=== PATIENT | female | born 1950 | race Caucasian/White ===

== ENCOUNTER 2016-06-08 16:53 | Emergency (ER) | payer MEDICARE, OTHER ==
[~2016-06-08] VITALS: Ht 170.2 cm; Wt 89.4 kg
--- NOTE | 2016-06-08 17:14 | ED Lower Extremity ---
General Chief Complaint: Lower Extremity Stated Complaint: LEFT FOOT SWELLING Source: patient Exam Limitations: no limitations History of Present Illness Time seen by provider: 17:13 Initial Comments To ER with reports of left foot swelling for the past 5 days. No known injury. No fevers or chills. This is never happened before. She was seen at [facility] at the onset of this illness and was told this was arthritis. She states that she's had blood work and an ultrasound done which failed to show any pathology and she was told again that this was arthritis. Onset: just prior to arrival Severity: moderate Pain/Injury Location: left leg Method of Injury: fell Modifying Factors: Improves With Movement Allergies and Home Medications Allergies Coded Allergies: Penicillins (Verified Allergy, Intermediate, 06/08/16) acetaminophen (Verified Allergy, Intermediate, 06/08/16) codeine (Verified Allergy, Intermediate, 06/08/16) oxycodone (Verified Allergy, Intermediate, 06/08/16) pentazocine (Verified Allergy, Intermediate, 06/08/16) propoxyphene (Verified Allergy, Intermediate, 06/08/16) tramadol (Verified Allergy, Intermediate, 06/08/16) Home Medications Sulfamethoxazole/Trimethoprim 1 Each Tablet #10 1 EACH PO BID Prescribed by: CORIN EPSTEIN on 06/08/16 3031 Constitutional: see HPI EENTM: see HPI Respiratory: no symptoms reported Cardiovascular: no symptoms reported Genitourinary: no symptoms reported Musculoskeletal: no symptoms reported Skin: no symptoms reported Psychiatric/Neurological: No Symptoms Reported Past Hvnuoma-Qipsum-Fhyoxo Hx Patient Social History Recent Foreign Travel: No Contact w/Someone Who Travel: No Physical Exam Vital Signs Vital Sign - Last 12Hours 06/08/16 17:11 Temp 96.6 Pulse 93 Resp 20 B/P 115/87 Pulse Ox 95 O2 Delivery Room Air Capillary Refill : General Appearance: WD/WN no apparent distress HEENT: PERRL/EOMI normal ENT inspection Respiratory: no respiratory distress no accessory muscle use Hips: bilateral hip non-tender, bilateral hip normal inspection, bilateral hip normal range of motion Legs: left leg pain, left leg soft tissue tenderness, left leg swelling, left leg other (swelling extends proximally to mid tibia. No erythema. ) Knees: bilateral knee non-tender, bilateral knee normal inspection, bilateral knee normal range of motion Ankles: bilateral ankle non-tender, bilateral ankle normal inspection, bilateral ankle normal range of motion Feet: left foot soft tissue tenderness, left foot swelling, left foot other ( there is a palpable dorsalis pedis pulse) Neurologic/Psychiatric: alert normal mood/affect oriented x 3 Skin: normal color warm/dry Progress/Results/Core Measures Results/Orders Lab Results Laboratory Tests Test 06/08/16 17:35 06/08/16 17:59 Range/Units Urine Bacteria FEW H /HPF Urine Bilirubin 1+ H NEGATIVE Urine Casts NONE /LPF Urine Clarity SLIGHTLY CLOUDY Urine Color YELLOW Urine Crystals NONE /LPF Urine Culture Indicated YES Urine Glucose (UA) NEGATIVE NEGATIVE Urine Ketones NEGATIVE NEGATIVE Urine Leukocyte Esterase 3+ H NEGATIVE Urine Mucus LARGE H /LPF Urine Nitrite NEGATIVE NEGATIVE Urine Protein 1+ H NEGATIVE Urine RBC 0-2 /HPF Urine RBC (Auto) 1+ H NEGATIVE Urine Specific [place] 1.030 H 1.016-1.022 Urine Squamous Epithelial Cells 10-25 H /HPF Urine Urobilinogen NORMAL NORMAL MG/DL Urine WBC 50-100 H /HPF Urine pH 5 5-9 Alanine Aminotransferase (ALT/SGPT) 18 0-55 U/L Albumin 3.5 3.2-4.5 G/DL Alkaline Phosphatase 69 40-136 U/L Anion Gap 10 5-14 MMOL/L Aspartate Amino Transf (AST/SGOT) 15 5-34 U/L BUN/Creatinine Ratio 13 Basophils # (Auto) 0.1 0.0-0.1 10^3/uL Basophils (%) (Auto) 1 0-10 % Blood Urea Nitrogen 10 7-18 MG/DL Calcium Level 8.6 8.5-10.1 MG/DL Carbon Dioxide Level 21 21-32 MMOL/L Chloride Level 110 H 98-107 MMOL/L Creatinine 0.80 0.60-1.30 MG/DL Eosinophils # (Auto) 0.3 0.0-0.3 10^3/uL Eosinophils (%) (Auto) 5 0-10 % Estimat Glomerular Filtration Rate > 60 Glucose Level 103 70-105 MG/DL Hematocrit 35 L 40-54 % Hemoglobin 11.7 L 13.3-17.7 G/DL Lymphocytes # (Auto) 2.2 1.0-4.0 X 10^3 Lymphocytes (%) (Auto) 31 12-44 % Mean Corpuscular Hemoglobin 31 25-34 PG Mean Corpuscular Hemoglobin Concent 34 32-36 G/DL Mean Corpuscular Volume 92 80-99 FL Mean Platelet Volume 11.4 H 7.4-10.4 FL Monocytes # (Auto) 1.0 0.0-1.0 X 10^3 Monocytes (%) (Auto) 14 H 0-12 % Neutrophils # (Auto) 3.6 1.8-7.8 X 10^3 Neutrophils (%) (Auto) 50 42-75 % Platelet Count 231 130-400 10^3/uL Potassium Level 3.5 L 3.6-5.0 MMOL/L Red Blood Count 3.74 L 4.35-5.85 10^6/uL Red Cell Distribution Width 14.4 10.0-14.5 % Sodium Level 141 135-145 MMOL/L Total Bilirubin 1.2 H 0.1-1.0 MG/DL Total Protein 5.9 L 6.4-8.2 G/DL White Blood Count 7.2 4.3-11.0 10^3/uL My Orders Orders-CORIN EPSTEIN APRN Cbc With Automated Diff (06/08/16 17:12) Comprehensive Metabolic Panel (06/08/16 17:12) Ua Culture If Indicated (06/08/16 17:12) Us Venous Lower Ext Lt (06/08/16 17:12) Urine Culture (06/08/16 17:35) Sulfamethoxazole/Trimet Ds Tab (Bactrim (06/08/16 19:00) Arsen Umair 09,21 (06/08/16 18:52) Medications Given in ED Current Medications Medications Dose Ordered Sig/Theodore Route Start Time Stop Time Status Last Admin Dose Admin Trimethoprim/ Sulfamethoxazole 1 ea ONCE ONCE PO 06/08/16 19:00 06/08/16 19:01 DC 06/08/16 18:58 1 EA Vital Signs/I&O Vital Sign - Last 12Hours 06/08/16 17:11 Temp 96.6 Pulse 93 Resp 20 B/P 115/87 Pulse Ox 95 O2 Delivery Room Air Diagnostic Imaging Diagonstic Imaging: Ultrasound Comments NAME: MICHAEL IBANEZ MED REC#: [id number] PT STATUS: REG ER : 1950 PHYSICIAN: CORIN EPSTEIN APRN ADMIT DATE: 06/08/16/ER Signed Date of Exam:06/08/16 US VENOUS LOWER EXT LT PROCEDURE: US left lower extremity venous. TECHNIQUE: Multiple real-time grayscale images were obtained over the left lower extremity in various projections. Additional duplex Doppler and color Doppler images were also obtained. Indication: Left leg pain. Findings: The left common femoral, femoral and popliteal veins are patent without evidence of DVT. Visualized aspects of the proximal greater saphenous, deep femoral, peroneal and posterior tibial veins are patent. All of the evaluated deep venous structures demonstrate normal compressibility and augmentation where applicable. Impression: No left lower extremity deep venous thrombosis (DVT). Dictated by: Dictated on workstation # [id number] Dict: 06/08/161750 Trans: 06/08/161751 [facility] [id number] Interpreted by: TEE TAYLOR MD Electronically signed by: TEE TAYLOR MD 06/08/161753 Departure Communication Progress Notes I did advise the patient that she does not have a blood clot, this may be Achilles tendinitis given the pain to the back of the ankle. There is no discoloration of the lower extremity. I advised that she does have a bladder infection. I then advised that that was not the cause of her leg swelling when her sister then stated that she believed the bladder infection to be the cause of her leg swelling. Impression Impression: Primary Impression: Left leg swelling Additional Impression: Urinary tract infection Qualified Code: N30.00 - Acute cystitis without hematuria Disposition: HOME, SELF-CARE Condition: Stable Departure-Patient Inst. Decision time for Depature: 18:00 Referrals: NO,LOCAL PHYSICIAN (PCP) Primary Care Physician Patient Instructions: NO INSTRUCTIONS GIVEN, Urinary Tract Infection, Adult (DC ) Add. Discharge Instructions: 1. Elevate the left leg as much as possible 2. Wear the compression stocking during the day and take it off at night for the next week 3. Follow-up with your primary care provider tomorrow or Sunday for further evaluation All discharge instructions reviewed with patient and/or family. Voiced understanding. Scripts Sulfamethoxazole/Trimethoprim (Bactrim Ds Tablet)1 Each Tablet1 Each PO BID #10 TAB Prov:CORIN EPSTEIN APRN 06/08/16 CORIN EPSTEIN APRN Jun 08, 2016 17:14
[2016-06-08 17:45] LABS: KETONES,URINE NEGATIVE (NEGATIVE); LEUKOCYTE ESTERASE ,URINE 3+ (NEGATIVE); NITRITE,URINE NEGATIVE (NEGATIVE); PH,URINE 5 (5-9); PROTEIN,URINE 1+ (NEGATIVE); UROBILINOGEN,URINE NORMAL (NORMAL)
--- NOTE | 2016-06-08 17:54 | Diagnostic Imaging Report ---
PROCEDURE: US left lower extremity venous. TECHNIQUE: Multiple real-time grayscale images were obtained over the left lower extremity in various projections. Additional duplex Doppler and color Doppler images were also obtained. Indication: Left leg pain. Findings: The left common femoral, femoral and popliteal veins are patent without evidence of DVT. Visualized aspects of the proximal greater saphenous, deep femoral, peroneal and posterior tibial veins are patent. All of the evaluated deep venous structures demonstrate normal compressibility and augmentation where applicable. Impression: No left lower extremity deep venous thrombosis (DVT). Dictated by: Dictated on workstation # [id number]
[2016-06-08 17:55] LABS: BILIRUBIN,URINE 1+ (NEGATIVE); WBC,URINE 50-100 /HPF
[2016-06-08 18:09] LABS: BASOPHILS # (AUTO) 0.1 10^3/uL (0.0-0.1); BASOPHILS % (AUTO) 1 % (0-10); EOSINOPHILS # (AUTO) 0.3 10^3/uL (0.0-0.3); EOSINOPHILS % (AUTO) 5 % (0-10); LYMPHOCYTES # (AUTO) 2.2 X 10^3 (1.0-4.0); LYMPHOCYTES % (AUTO) 31 % (12-44); MEAN CORPUSCULAR HEMOGLOBIN 31 PG (25-34); MEAN CORPUSCULAR HGB CONC 34 G/DL (32-36); MEAN CORPUSCULAR VOLUME 92 FL (80-99); MEAN PLATELET VOLUME 11.4 FL (7.4-10.4); MONOCYTES % (AUTO) 14 % (0-12); NEUTROPHILS # (AUTO) 3.6 X 10^3 (1.8-7.8); NEUTROPHILS % (AUTO) 50 % (42-75); PLATELET COUNT 231 10^3/uL (130-400); RED BLOOD COUNT 3.74 10^6/uL (4.35-5.85); RED CELL DISTRIBUTION WIDTH 14.4 % (10.0-14.5); WHITE BLOOD COUNT 7.2 10^3/uL (4.3-11.0)
[2016-06-08 18:28] LABS: ALANINE AMINOTRANSFERASE 18 U/L (0-55); ALBUMIN 3.5 G/DL (3.2-4.5); ANION GAP 10 MMOL/L (5-14); ASPARTATE AMINO TRANSFERASE 15 U/L (5-34); BILIRUBIN,TOTAL 1.2 MG/DL (0.1-1.0); BLOOD UREA NITROGEN 10 MG/DL (7-18); BUN/CREATININE RATIO 13; CALCIUM 8.6 MG/DL (8.5-10.1); CARBON DIOXIDE 21 MMOL/L (21-32); CHLORIDE 110 MMOL/L (98-107); GFR ESTIMATED > 60; GLUCOSE 103 MG/DL (70-105); POTASSIUM 3.5 MMOL/L (3.6-5.0); SODIUM 141 MMOL/L (135-145); TOTAL PROTEIN 5.9 G/DL (6.4-8.2)
[2016-06-08] MEDS ORDERED: SULF1TAB35 PO (18:51)
[2016-06-08 19:00] VITALS: BP 120/85
[2016-06-08] MEDS ORDERED: TRIM/SULFAMETH 160/800 (SEPTRA DS) TAB PO ONE (19:00)
== END 2016-06-08 19:00 | disposition home or self-care (01) ==
LOC: EDUNIT# 16:53 → EDSEX 16:57 → ER 16:57
DX: R22.42 Localized swelling, mass and lump, left lower limb (principal); N39.0 Urinary tract infection, site not specified
CPT/HCPCS: 36415; 80053; 81000; 85025; 87088; 99283

== ENCOUNTER 2016-09-29 14:22 | Emergency (ER) | payer MEDICARE ==
[~2016-09-29] VITALS: Ht 170.2 cm; Wt 81.6 kg
[~2016-09-29 14:22] MED LIST: SULF1TAB35 PO
--- NOTE | 2016-09-29 14:41 | ED Chest Pain ---
General Stated Complaint: CHEST PAIN Source: patient Exam Limitations: no limitations History of Present Illness Time seen by provider: 14:29 Initial Comments Here with report of right-sided chest pain that she says is tight and squeezing. It is associated with nausea and shortness of breath. She states that it started at about 5 a.m. this morning and was associated with sweating at that time. She went to [place] [facility] and was discharged little while ago and they told her that she didn't have anything going on for the patient. The sister reports that the patient had seizures [address] over here and patient has history of seizure disorder. She had another event from we are putting her in the bed which lasted about 5 seconds and resolved and seemed to be more like the patient was just slumping over. She was responsive throughout that time. Sister states that this is what she's been doing in the car as well. This does not appear to be seizures. Patient denies dysuria or diarrhea currently but did have diarrhea a few days ago. Timing/Duration: 4-6 hours Severity/Quality: moderate, pressure, stabbing Location: other (right sided) Radiation: no radiation Activities at Onset: none Prior CP/Workup: no prior cardiac workup Modifying Factors: worse with movement ASA po BIOFUELS OPERATIONS MANAGER: No NTG SL BIOFUELS OPERATIONS MANAGER: No Associated Symptoms: diaphoresis, nausea/vomiting, weakness Allergies and Home Medications Allergies Coded Allergies: Penicillins (Verified Allergy, Intermediate, 06/08/16) acetaminophen (Verified Allergy, Intermediate, 06/08/16) codeine (Verified Allergy, Intermediate, 06/08/16) oxycodone (Verified Allergy, Intermediate, 06/08/16) pentazocine (Verified Allergy, Intermediate, 06/08/16) propoxyphene (Verified Allergy, Intermediate, 06/08/16) tramadol (Verified Allergy, Intermediate, 06/08/16) Home Medications Sulfamethoxazole/Trimethoprim 1 Each Tablet, 1 EACH PO BID, #10 Prescribed by: CORIN EPSTEIN on 06/08/16 7352 Review of Systems Constitutional: see HPI, No chills, No fever EENTM: No Symptoms Reported Respiratory: See HPI, Shortness of Air, Denies Wheezing Cardiovascular: Chest Pain, Denies Edema Gastrointestinal: See HPI, Denies Vomiting Genitourinary: No Symptoms Reported Musculoskeletal: no symptoms reported Skin: no symptoms reported Psychiatric/Neurological: See HPI, Anxiety, Emotional Problems All Other Systems Reviewed Negative Unless Noted: Yes Past Wdwudll-Fzwsjc-Sdguki Hx Patient Social History Alcohol Use: Denies Use Recreational Drug Use: No Smoking Status: Former Smoker Type Used: Cigarettes 2nd Hand Smoke Exposure: Yes Recent Hopitalizations: Yes (HEART CATH 05/31/16) Seasonal Allergies Seasonal Allergies: No Surgeries HX Surgeries: Yes (HEART CATH, COLON, CARPAL TUNNEL, EYE) Surgeries: Appendectomy, Gallbladder Respiratory Hx Respiratory Disorders: Yes Respiratory Disorders: Asthma, Emphysema Cardiovascular Hx Cardiac Disorders: Yes (CHF) Cardiac Disorders: Hypertension Neurological Hx Neurological Disorders: No Genitourinary Hx Genitourinary Disorders: No Gastrointestinal Hx Gastrointestinal Disorders: No Musculoskeletal Hx Musculoskeletal Disorders: Yes Musculoskeletal Disorders: Arthritis, Chronic Back Pain Endocrine Hx Endocrine Disorders: No HEENT HX ENT Disorders: Yes HEENT Disorders: Cataract Cancer Hx Cancer: No Psychosocial Hx Psychiatric Problems: Yes Behavioral Health Disorders: Anxiety Integumentary HX Skin/Integumentary Disorder: No Blood Transfusions Hx Blood Disorders: No Reviewed Nursing Assessment Reviewed/Agree w Nursing PMH: Yes Family Medical History Significant Family History: No Pertinent Family Hx Physical Exam Vital Signs Vital Sign - Last 12Hours 09/29/16 09/29/16 14:25 18:30 Temp 97.8 Pulse 55 Resp 16 B/P (MAP) 150/80 Pulse Ox 98 Capillary Refill : General Appearance: No Apparent Distress, WD/WN HEENT: PERRL/EOMI, Pharynx Normal Neck: Non Tender, Supple Respiratory: Lungs Clear, Normal Breath Sounds Cardiovascular: Regular Rate, Rhythm, No Murmur Gastrointestinal: Non Tender, Soft Extremity: Normal Inspection, Normal Range of Motion, Non Tender, No Calf Tenderness Neurologic/Psychiatric: Alert, Oriented x3 Skin: Normal Color, Warm/Dry Progress/Results/Core Measures Results/Orders Lab Results Laboratory Tests Test 09/29/16 15:32 09/29/16 17:07 Range/Units White Blood Count 8.3 4.3-11.0 10^3/uL Red Blood Count 4.00 L 4.35-5.85 10^6/uL Hemoglobin 12.1 11.5-16.0 G/DL Hematocrit 37 35-52 % Mean Corpuscular Volume 92 80-99 FL Mean Corpuscular Hemoglobin 30 25-34 PG Mean Corpuscular Hemoglobin Concent 33 32-36 G/DL Red Cell Distribution Width 14.0 10.0-14.5 % Platelet Count 218 130-400 10^3/uL Mean Platelet Volume 11.4 H 7.4-10.4 FL Neutrophils (%) (Auto) 52 42-75 % Lymphocytes (%) (Auto) 34 12-44 % Monocytes (%) (Auto) 9 0-12 % Eosinophils (%) (Auto) 5 0-10 % Basophils (%) (Auto) 1 0-10 % Neutrophils # (Auto) 4.3 1.8-7.8 X 10^3 Lymphocytes # (Auto) 2.8 1.0-4.0 X 10^3 Monocytes # (Auto) 0.7 0.0-1.0 X 10^3 Eosinophils # (Auto) 0.4 H 0.0-0.3 10^3/uL Basophils # (Auto) 0.1 0.0-0.1 10^3/uL Prothrombin Time 11.7 L 12.2-14.7 SEC INR Comment 0.9 0.8-1.4 Activated Partial Thromboplast Time < 20 L 24-35 SEC D-Dimer 1.06 H 0.00-0.49 UG/ML Sodium Level 142 135-145 MMOL/L Potassium Level 4.0 3.6-5.0 MMOL/L Chloride Level 111 H 98-107 MMOL/L Carbon Dioxide Level 19 L 21-32 MMOL/L Anion Gap 12 5-14 MMOL/L Blood Urea Nitrogen 14 7-18 MG/DL Creatinine 0.73 0.60-1.30 MG/DL Estimat Glomerular Filtration Rate > 60 BUN/Creatinine Ratio 19 Glucose Level 89 70-105 MG/DL Calcium Level 8.9 8.5-10.1 MG/DL Magnesium Level 2.2 1.8-2.4 MG/DL Total Bilirubin 0.7 0.1-1.0 MG/DL Aspartate Amino Transf (AST/SGOT) 17 5-34 U/L Alanine Aminotransferase (ALT/SGPT) 16 0-55 U/L Alkaline Phosphatase 65 40-136 U/L Myoglobin 34.2 40.3 10.0-92.0 NG/ML Troponin I < 0.30 < 0.30 <0.30 NG/ML Total Protein 6.4 6.4-8.2 G/DL Albumin 3.6 3.2-4.5 G/DL My Orders Orders - TAMI OWEN MD Cbc With Automated Diff (09/29/16 14:34) Magnesium (09/29/16 14:34) Chest 1 View, Ap/Pa Only (09/29/16 14:34) Ekg Tracing (09/29/16 14:34) Cardiac Profile 1 (09/29/16 14:34) Comprehensive Metabolic Panel (09/29/16 14:34) Myoglobin Serum (09/29/16 14:34) Protime With Inr (09/29/16 14:34) Partial Thromboplastin Time (09/29/16 14:34) O2 (09/29/16 14:34) Monitor-Rhythm Ecg Trace Only (09/29/16 14:34) Aspirin Chewable Tablet (Baby Aspirin Ch (09/29/16 14:45) Rx-Nitroglycerin Sl Tabs (Rx-Nitrostat S (09/29/16 14:45) Saline Lock/Iv-Start (09/29/16 14:34) Fibrin Degradation Products (09/29/16 14:52) Hydrocodone/Apap 7.5/325 Tab (Lortab 7. (09/29/16 16:39) Us Venous Lower Ext Zackery (09/29/16 16:39) Troponin I (09/29/16 16:43) Ekg Tracing (09/29/16 16:43) Myoglobin Serum (09/29/16 16:43) Medications Given in ED Vital Signs/I&O Vital Sign - Last 12Hours 09/29/16 09/29/16 09/29/16 09/29/16 14:25 15:40 17:18 18:30 Temp 97.8 97.8 97.8 97.8 Pulse 55 58 Resp 16 16 B/P (MAP) 150/80 Pulse Ox 98 Progress Note : Progress Note Seen and evaluated. IV, labs, EKG, chest x-ray, aspirin 324 mg by mouth. Nitroglycerin sublingual when necessary ordered. Monitor patient. 1635: Patient does not have any significant findings related to heart except for mild elevation of d-dimer. I did discuss the case with Dr. Jasso. He is not convinced there is admitting criteria currently. We will get a Doppler ultrasound of the lower extremities bilaterally. Hydrocodone 7.5 mg by mouth given for pain. We will check orthostatic vital signs. Patient is doing better overall and there is no EKG findings or laboratory findings to suggest current acute FL event. Patient is not hypoxic and otherwise has normal vital signs. 1809: Repeat EKG, labs and ultrasound all negative. I did discuss the case with Dr. Galvez and he will see the patient early next week for recheck and further evaluation. Patient was okay with that. There is she will follow-up with the patient on Sunday and the patient is to call his office. Patient was okay with those instructions. She was offered Sunday but stated she could not go on that date due to difficulty with getting a ride. Discharged home with return precautions. Patient verbalized understanding of instructions and agreement with plan. ECG Initial ECG Impression Date: Sep 29, 2016 Initial ECG Impression Time: 14:31 Initial ECG Rate: 63 Initial ECG Rhythm: Normal Sinus Initial ECG Impression: Normal Comment Sinus rhythm with normal axis. No evidence of ST elevation FL. Similar to previous of 12/31/1999. Interpreted by me. EKG : EKG Time: 16:54 Rate: 52 Rhythm: Normal Sinus ECG Impression: Normal Comment Sinus rhythm with normal axis. No evidence of ST elevation FL. Similar to EKG done earlier. Interpreted by me. Diagnostic Imaging Diagonstic Imaging: Xray Plain Films/CT/US/NM/MRI: chest Comments VIA [facility]. [place], [place] NAME: MICHAEL IBANEZ [facility] REC#: [id number] PT STATUS: REG ER : 1950 PHYSICIAN: TAMI OWEN MD ADMIT DATE: 09/29/16/ER Draft Date of Exam:09/29/16 CHEST 1 VIEW, AP/PA ONLY INDICATION: Right-sided chest pain EXAMINATION: Portable chest at 2:41 PM Heart size and pulmonary vascularity are normal. Lungs are clear. There are no effusions or pneumothoraces. IMPRESSION: Negative chest. Dictated on workstation # [id number] Dict: 09/29/16 1448 Trans: 09/29/16 1450 [place] [id number] Interpreted by: TAMI GRANGER Electronically signed by: Reviewed: Reviewed by Me Departure Impression Impression: Primary Impression: Chest pain Qualified Codes: R07.9 - Chest pain, unspecified Disposition: 01 HOME, SELF-CARE Condition: Stable Departure-Patient Inst. Decision time for Depature: 18:17 Referrals: GERONIMO GALVEZ MD NO,LOCAL PHYSICIAN (PCP) Primary Care Physician Patient Instructions: Chest Pain (DC) Add. Discharge Instructions: Continue home medications as previously prescribed. Call Dr. Galvez on Sunday morning for appointment on Sunday. Return for worse pain, fever, vomiting, weakness, breathing problems or other concerns as needed. TAMI OWEN MD Sep 29, 2016 14:41
[2016-09-29] MEDS ORDERED: RX-NITROGLYCERIN 0.4 MG TAB BTL 25'S SL PRN (14:45)
--- NOTE | 2016-09-29 14:51 | Diagnostic Imaging Report ---
INDICATION: Right-sided chest pain EXAMINATION: Portable chest at 2:41 PM Heart size and pulmonary vascularity are normal. Lungs are clear. There are no effusions or pneumothoraces. IMPRESSION: Negative chest. Dictated by: Dictated on workstation # [id number]
[2016-09-29 15:40] LABS: BASOPHILS # (AUTO) 0.1 10^3/uL (0.0-0.1); BASOPHILS % (AUTO) 1 % (0-10); EOSINOPHILS # (AUTO) 0.4 10^3/uL (0.0-0.3); EOSINOPHILS % (AUTO) 5 % (0-10); LYMPHOCYTES # (AUTO) 2.8 X 10^3 (1.0-4.0); LYMPHOCYTES % (AUTO) 34 % (12-44); MEAN CORPUSCULAR HEMOGLOBIN 30 PG (25-34); MEAN CORPUSCULAR HGB CONC 33 G/DL (32-36); MEAN CORPUSCULAR VOLUME 92 FL (80-99); MEAN PLATELET VOLUME 11.4 FL (7.4-10.4); MONOCYTES # (AUTO) 0.7 X 10^3 (0.0-1.0); MONOCYTES % (AUTO) 9 % (0-12); NEUTROPHILS # (AUTO) 4.3 X 10^3 (1.8-7.8); NEUTROPHILS % (AUTO) 52 % (42-75); PLATELET COUNT 218 10^3/uL (130-400); WHITE BLOOD COUNT 8.3 10^3/uL (4.3-11.0)
[2016-09-29] MEDS: ASPIRIN 81 MG CHEW (CHILDREN'S ASA) PO ONE (15:40)
[2016-09-29 15:49] LABS: INR 0.9 (0.8-1.4); PROTHROMBIN TIME PATIENT 11.7 SEC (12.2-14.7)
[2016-09-29 15:52] LABS: PARTIAL THROMBOPLASTIN TIME < 20 SEC (24-35)
[2016-09-29 15:57] LABS: ALANINE AMINOTRANSFERASE 16 U/L (0-55); ALBUMIN 3.6 G/DL (3.2-4.5); ANION GAP 12 MMOL/L (5-14); ASPARTATE AMINO TRANSFERASE 17 U/L (5-34); BILIRUBIN,TOTAL 0.7 MG/DL (0.1-1.0); BLOOD UREA NITROGEN 14 MG/DL (7-18); BUN/CREATININE RATIO 19; CALCIUM 8.9 MG/DL (8.5-10.1); CARBON DIOXIDE 19 MMOL/L (21-32); CHLORIDE 111 MMOL/L (98-107); CREATININE SERUM 0.73 MG/DL (0.60-1.30); GFR ESTIMATED > 60; GLUCOSE 89 MG/DL (70-105); MAGNESIUM 2.2 MG/DL (1.8-2.4); SODIUM 142 MMOL/L (135-145); TOTAL PROTEIN 6.4 G/DL (6.4-8.2)
[2016-09-29 16:04] LABS: MYOGLOBIN SERUM 34.2 NG/ML (10.0-92.0)
[2016-09-29] MEDS: HYDROcodone/APAP 7.5 MG/325 MG (LORTAB, LORCET PLUS) TABLET PO STA (17:18)
[2016-09-29 17:41] LABS: MYOGLOBIN SERUM 40.3 NG/ML (10.0-92.0); TROPONIN I < 0.30 NG/ML (<0.30)
--- NOTE | 2016-09-29 18:25 | Diagnostic Imaging Report ---
INDICATION: Bilateral leg pain. EXAMINATION: Duplex ultrasound of the venous systems of both lower extremities was done with grayscale, spectral waveform and color Doppler flow analysis. FINDINGS: The veins are compressible and have normal spontaneous and augmented flow. IMPRESSION: Negative venous Doppler of the lower extremities. Dictated by: Dictated on workstation # [id number]
[2016-09-29 18:30] VITALS: BP 130/80
== END 2016-09-29 18:30 | disposition home or self-care (01) ==
LOC: EDUNIT# 14:22 → ER 14:24
DX: R07.9 Chest pain, unspecified (principal); J45.909 Unspecified asthma, uncomplicated; I11.0 Hypertensive heart disease with heart failure; I50.9 Heart failure, unspecified; Z87.891 Personal history of nicotine dependence
CPT/HCPCS: 36415; 71010; 80053; 83735; 83874; 84484; 85025; 85379; 85610; 85730; 93041; 93970

== ENCOUNTER 2016-12-20 09:20 | Emergency (ER) | payer MEDICARE ==
[~2016-12-20] VITALS: Ht 170.2 cm; Wt 81.6 kg
--- OUTSIDE RECORDS SUMMARY | 2016-12-20 09:36 | XMS REPORT ---
Author Author Rylee Palacios Organization [facility] Address [address] [place], [place] [id number] Care Team Providers Care Chick Room Supervisor Name Role Phone Rylee Palacios PCP Rylee Palacios PreferredProvider Allergies and Adverse Reactions Name Reaction Notes Keflex PENICILLINS Darvocet-N 100 codeine sulfate tramadol Talwin Morphine Sulfate Percocet IV DYE, IODINE CONTAINING Plan of Treatment Planned Activity Comments Planned Date Planned Time Plan/Goal CT ABD AND PELVIS W/WO CONTRAST 02/23/2016 12:[address] ABD AND PELVIS W/CONTRAST 06/12/2016 12:00 AM Complete blood count (CBC) with differential count 07/25/2016 12:00 AM UA with Culture and Sensitivity, if indicated 08/23/2016 12:00 AM GTT FIRST 3 SPECIMENS 08/23/2016 12:00 AM Fecal occult blood test 08/23/2016 12:00 AM seizures and migraines Medications Active Name Start Date Estimated Completion Date SIG Comments loratadine 10 mg oral tablet take 1 tablet (10 mg) by oral route once daily Singulair 10 mg oral tablet take 1 tablet (10 mg) by oral route once daily in the evening omeprazole 40 mg oral capsule,delayed release(DR/EC) take 1 capsule (40 mg) by oral route once daily before a meal Colace 100 mg oral capsule take 2 capsules (200 mg) by oral route once daily at bedtime as needed Stiolto Respimat 2.5-2.5 mcg/actuation inhalation mist inhale 2 puffs by inhalation route once daily at the same time each day amitriptyline 25 mg oral tablet 02/23/2016 take 1 tablet (25 mg) by oral route once daily at bedtime albuterol sulfate 2.5 mg /3 mL (0.083 %) inhalation solution for nebulization inhale 3 milliliters (2.5 mg) by nebulization route as needed Celexa 20 mg oral tablet take 1 tablet (20 mg) by oral route once daily pravastatin 40 mg oral tablet take 1 tablet (40 mg) by oral route once daily Ventolin HFA 90 mcg/actuation inhalation HFA aerosol inhaler 06/14/2016 inhale 1 - 2 puffs (90 - 180 mcg) by inhalation route every 4 hours as needed Stiolto Respimat 2.5-2.5 mcg/actuation inhalation mist 07/25/2016 2 INH QD pravastatin 40 mg oral tablet 07/25/2016 1 Tablet(s) PO QD montelukast 10 mg oral tablet 08/21/2016 TAKE 1 TABLET BY MOUTH EVERY DAY Duragesic 50 mcg/hr transdermal patch 72 hour 08/08/2016 apply 1 patch (50 mcg/hour) by transdermal route every 72 hours topiramate 50 mg oral capsule,sprinkle,ER 24hr 09/07/2016 01/05/2017 take 1 capsule (50 mg) and sprinkle entire contents on a small amount (teaspoonful) of soft food and take by oral route once daily swallowing whole. Do not crush or chew beads. for 30 days aspirin 325 mg oral tablet 09/07/2016 01/05/2017 take 1 tablet by oral route QD with food lisinopril 10 mg oral tablet take 1 tablet (10 mg) by oral route once daily ondansetron HCl 4 mg oral tablet take 1 tablet by oral route every 4 hours nystatin 100,000 unit/gram topical cream 10/16/2016 11/27/2016 apply to the affected area(s) by topical route 2 times per day for 21 days omeprazole 40 mg oral capsule,delayed release(DR/EC) 10/18/2016 TAKE 1 CAPSULE BY MOUTH EVERY DAY albuterol sulfate 2.5 mg /3 mL (0.083 %) inhalation solution for nebulization 10/23/2016 one amp in nebulizer machine up to every four hours as neede Milliliter(s) INH QID as needed Nebulizer and Kit 10/27/2016 DX: J44.9 Name Start Date Expiration Date SIG Comments Zipsor 25 mg oral capsule 01/20/2010 01/21/2010 take 1 capsule (25 mg) by oral route 4 times per day for 1 day doxycycline monohydrate 100 mg oral tablet 02/18/2010 02/25/2010 take 1 tablet (100 mg) by oral route 2 times per day for 7 days Premarin 1.25 mg oral tablet 12/12/2010 03/12/2011 TAKE 1 TABLET BY MOUTH EVERY DAY meloxicam 15 mg oral tablet 12/12/2010 01/11/2011 TAKE 1 TABLET BY MOUTH EVERY DAY pravastatin 40 mg oral tablet 03/24/2011 04/23/2011 TAKE 1 TABLET BY MOUTH EVERY DAY prednisone 20 mg oral tablet 05/15/2011 05/27/2011 take 3 tabs x2 days then 2 tabs x2 days then 1 tab x4 days then 1/2 tab x4 days. Bactrim DS 800-160 mg oral tablet 05/15/2011 05/25/2011 take 1 tablet by oral route 2 times a day for 10 days omeprazole 20 mg oral capsule,delayed release(DR/EC) 06/16/2011 09/14/2011 TAKE 1 CAPSULE BY MOUTH TWICE DAILY warfarin 5 mg oral tablet 11/14/2011 12/14/2011 TAKE 1 TABLET BY MOUTH DAILY loratadine 10 mg oral tablet 2012 06/16/2012 TAKE 1 TABLET BY MOUTH EVERY DAY Multivital [phone] [id number] oral tablet 08/06/2012 12/14/2012 TAKE 1 TABLET BY MOUTH EVERY MORNING omega-3 fatty acids-fish oil 340-1,000 mg oral capsule 08/06/2012 10/05/2012 TAKE 1 CAPSULE BY MOUTH EVERY DAY Bystolic 10 mg oral tablet 12/02/2012 01/01/2013 TAKE 1 TABLET BY MOUTH DAILY montelukast 10 mg oral tablet 02/05/2013 05/06/2013 TAKE 1 TABLET BY MOUTH EVERY DAY Vesicare 5 mg oral tablet 05/13/2013 11/09/2013 TAKE 1 TABLET BY MOUTH EVERY DAY Vesicare 5 mg oral tablet 06/27/2013 TAKE 1 TABLET BY MOUTH EVERY DAY latanoprost 0.005 % ophthalmic drops instill 1 drop into affected eye(s ) by ophthalmic route once daily in the evening albuterol sulfate 90 mcg/actuation inhalation HFA aerosol inhaler inhale 2 puffs by inhalation route every 4 hours as needed Fish Oil 500 mg oral capsule take 2 capsules by oral route daily Carafate 1 gram oral tablet take 1 tablet (1 gram) by oral route 2 times per day on an empty stomach Sinemet 10-100 mg oral tablet take 1 tablet by oral route QHS Protonix 40 mg oral tablet,delayed release (DR/EC) take 1 tablet (40 mg ) by oral route once daily Tessalon Perles 100 mg oral capsule take 1 capsule (100 mg) by oral route every 4 hours as needed Bystolic 10 mg oral tablet take 1 tablet (10 mg) by oral route once daily amitriptyline 25 mg oral tablet take 1 tablet (25 mg) by oral route once daily at bedtime for 30 days furosemide 20 mg oral tablet take 2 tablets (40 mg) by oral route once daily albuterol sulfate 2.5 mg /3 mL (0.083 %) inhalation solution for nebulization cyclobenzaprine 10 mg oral tablet take 2 tablets by oral route daily Flagyl 500 mg oral tablet 02/23/2016 take 1 tablet by oral route 3 times a day Levaquin 500 mg oral tablet 02/23/2016 03/08/2016 take 1 tablet (500 mg) by oral route once daily for 14 days Levaquin 500 mg oral tablet 04/21/2016 05/01/2016 take 1 tablet (500 mg) by oral route once daily for 10 days prednisone 20 mg oral tablet 04/21/2016 04/29/2016 4x2 days 3x2 days 2x2 days 1x2 days Tessalon Perles 100 mg oral capsule 04/21/2016 take 1 capsule by oral route every 4 hours Lockhart 10-325 mg oral tablet take 1 tablet by oral route every 4-6 hours as needed for pain hydrocodone-acetaminophen 5-325 mg oral tablet 07/25/2016 08/24/2016 take 1 tablet by oral route every 4 hours as needed for pain for 30 days Discontinued Name Start Date Discontinued Date SIG Comments meclizine 25 mg oral tablet 06/01/2011 take 1 tablet (25 mg) by oral route once daily Belladonna-Phenobarbital 16.2-0.1037 -0.0194 mg/5 mL oral elixir 06/01/2011 take 1 milliliter by oral route daily for 30 days furosemide 80 mg oral tablet 06/01/2011 take 1 tablet (80 mg) by oral route once daily lisinopril-hydrochlorothiazide 20-12.5 mg oral tablet 04/05/2009 take 1 tablet by oral route once daily Norvasc 10 mg oral tablet 04/05/2009 05/06/2009 take 1 tablet (10 mg) by oral route once daily for 30 days leg swelling Colace 100 mg oral capsule 05/06/2009 12/15/2013 take 1 capsule (100 mg) by oral route 2 times per day enalapril maleate 10 mg oral tablet 05/06/2009 09/21/2009 take 1 tablet (10 mg ) by oral route once daily Milk of Magnesia 400 mg/5 mL oral suspension 05/06/2009 06/01/2011 take 30 milliliters by oral route once daily as needed, followed by a full glass (8 oz) of liquid promethazine 25 mg oral tablet 05/06/2009 06/01/2011 take 1 tablet (25 mg) by oral route every 4 hours as needed Coreg 6.25 mg oral tablet 06/21/2009 09/21/2009 take 1 tablet (6.25 mg) by oral route 2 times per day with food Lotrisone 1-0.05 % topical cream 06/21/2009 06/01/2011 apply to the affected and surrounding areas of skin by topical route 2 times per day morning and evening benazepril 10 mg oral tablet 09/21/2009 take 1 tablet (10 mg) by oral route once daily A/B Otic 5.4-1.4 % otic drops 07/27/2009 06/01/2011 instill into left ear by otic route every 2 hours as needed enough drops to fill ear canal Ventolin HFA 90 mcg/actuation inhalation HFA aerosol inhaler 12/15/2013 inhale 2 puffs by inhalation route every 6 hours as needed Tessalon Perles 100 mg oral capsule 02/17/2010 06/01/2011 take 1-2 capsule ( 100 mg) by oral route 3 times per day prn cough Zithromax Z-Carlitos 250 mg oral tablet 02/17/2010 02/18/2010 take 2 tablets ( 500 mg) by oral route once daily for 1 day then 1 tablet (250 mg) by oral route once daily for 4 days Treximet 85-500 mg oral tablet 11/04/2010 06/01/2011 take 1 tablet by oral route 2 times a day Fish Oil 1,000 mg oral capsule 06/01/2011 12/15/2013 take 1 capsule by oral route daily hydroxyzine HCl 25 mg oral tablet 06/01/2011 12/15/2013 take 1 tablet by oral route every 6 hours as needed multivitamin Oral Capsule 06/01/2011 12/15/2013 take 1 capsule by oral route once daily albuterol sulfate 2.5 mg /3 mL (0.083 %) inhalation solution for nebulization 06/02/2011 12/15/2013 use in nebulizer as directed every 4 hours as needed Fish Oil 300-1,000 mg oral capsule 07/22/2013 12/15/2013 TAKE 1 CAPSULE BY MOUTH EVERY DAY aspirin 81 mg oral tablet,chewable 07/25/2016 chew 1 tablet (81 mg) by oral route once daily atenolol 25 mg oral tablet 10/16/2016 take 1 tablet (25 mg) by oral route once daily pravastatin 80 mg oral tablet 06/06/2016 take 1 tablet (80 mg) by oral route once daily ProAir HFA 90 mcg/actuation inhalation HFA aerosol inhaler 06/06/2016 inhale 1 - 2 puffs (90 - 180 mcg) by inhalation route every 4-6 hours as needed amitriptyline 25 mg oral tablet 04/18/2016 10/16/2016 take 1 tablet (25 mg) by oral route once daily at bedtime Zofran ODT 4 mg oral tablet,disintegrating 05/18/2016 07/25/2016 dissolve 1 tablet by oral route every 6 hours as needed furosemide 20 mg oral tablet 10/16/2016 take 2 tablets (40 mg) by oral route 2 times per day cyclobenzaprine 10 mg oral tablet 06/06/2016 take 1 tablet (10 mg) by oral route once daily hydrocodone-acetaminophen 10-325 mg oral tablet 07/25/2016 take 1 tablet by oral route every 4 hours as needed for pain prednisone 50 mg oral tablet 06/15/2016 07/25/2016 take 1 by mouth 13 hours prior to procedure take 1 by mouth 7 hours prior to procedure and 1 by mouth 1 hour prior to procedure Problem List Description Status Onset Hypertension Active Hyperlipidemia Active Asthma Active Anemia Active Abdominal Pain Active 12/24/2013 Duodenal ulcer Active 12/24/2013 Encounter for screening colonoscopy Active 12/24/2013 LLQ pain Active 02/23/2016 Diverticulitis Active 02/23/2016 IBS (irritable bowel syndrome) Active 02/23/2016 Dyspepsia Active 02/23/2016 Diverticulitis Active 04/04/2016 Abdominal wall pain Active 08/08/2016 Vital Signs Date Time BP-Sys(mm[Hg] BP-Cher(mm[Hg]) HR(bpm) RR(rpm) Temp WT HT HC BMI BSA BMI Percentile O2 Sat(%) 10/16/2016 3:39:00 PM 120 mmHg 78 mmHg 82 bpm 16 rpm 98.9 F 207.375 lbs 67 in 32.48 kg/m2 2.11 m2 95 % 09/07/2016 2:40:00 PM 150 mmHg 89 mmHg 73 bpm 18 rpm 99.6 F 199.125 lbs 67 in 31.1871 kg/m 2.0663 m 95 % 09/05/2016 9:46:00 AM 157 mmHg 79 mmHg 59 bpm 20 rpm 97.2 F 201.5 lbs 67 in 31.56 kg/m2 2.08 m2 08/23/2016 8:18:00 AM 152 mmHg 82 mmHg 62 bpm 18 rpm 98.7 F 202.375 lbs 67 in 31.6961 kg/m 2.0831 m 98 % 08/08/2016 9:15:00 AM 125 mmHg 98 mmHg 65 bpm 20 rpm 96.8 F 204 lbs 67 in 31.95 kg/m2 2.09 m2 07/25/2016 8:39:00 AM 168 mmHg 86 mmHg 62 bpm 18 rpm 97.8 F 202.25 lbs 67 in 31.6765 kg/m 2.0825 m 98 % 06/15/2016 1:48:00 PM 110 mmHg 70 mmHg 106 bpm 22 rpm 98.7 F 196 lbs 97 % 06/06/2016 2:58:00 PM 118 mmHg 74 mmHg 102 bpm 16 rpm 98.7 F 197.25 lbs 67 in 30.8934 kg/m 2.0566 m 98 % 05/24/2016 8:56:00 AM 118 mmHg 83 mmHg 99 bpm 20 rpm 96.9 F 195 lbs 67 in 30.54 kg/m2 2.04 m2 04/21/2016 5:16:00 PM 142 mmHg 80 mmHg 98 bpm 99.5 F 212 lbs 67.5 in 32.7135 kg/m 2.14 m 95 % 04/04/2016 3:02:00 PM 104 mmHg 80 mmHg 89 bpm 20 rpm 97.4 F 209.5 lbs 67.5 in 32.33 kg/m2 2.13 m2 02/23/2016 9:04:00 AM 161 mmHg 93 mmHg 15 bpm 20 rpm 97.1 F 210.5 lbs 70.5 in 29.7764 kg/m 2.1793 m 01/21/2014 8:50:00 AM 118 mmHg 60 mmHg 70 bpm 22 rpm 97.8 F 233 lbs 66 in 37.61 kg/m2 2.22 m2 12/23/2013 10:41:00 AM 147 mmHg 87 mmHg 65 bpm 22 rpm 97.2 F 235 lbs 66 in 37.9296 kg/m 2.2279 m 07/24/2011 2:36:00 PM 124 mmHg 90 mmHg 62 bpm 16 rpm 97.6 F 229.25 lbs 98 % 07/11/2011 9:03:00 AM 150 mmHg 92 mmHg 80 bpm 18 rpm 98.4 F 95 % 06/07/2011 8:57:00 AM 122 mmHg 84 mmHg 83 bpm 18 rpm 95.6 F 95 % 06/01/2011 2:27:00 PM 130 mmHg 72 mmHg 100 bpm 20 rpm 96.6 F 231.125 lbs 66 in 37.3042 kg/m 2.2095 m 94 % 05/15/2011 9:00:00 AM 142 mmHg 78 mmHg 68 bpm 20 rpm 96.6 F 253.125 lbs 66 in 40.86 kg/m2 2.31 m2 03/07/2011 9:15:00 AM 142 mmHg 100 mmHg 75 bpm 20 rpm 96.9 F 245.5 lbs 96 % 12/05/2010 9:21:00 AM 130 mmHg 72 mmHg 58 bpm 22 rpm 96 F 236 lbs 66 in 38.09 kg/m2 2.23 m2 95 % 11/04/2010 3:06:00 PM 130 mmHg 70 mmHg 69 bpm 16 rpm 98.3 F 99 % 10/20/2010 3:09:00 PM 130 mmHg 84 mmHg 68 bpm 18 rpm 97.5 F 237 lbs 99 % 08/02/2010 11:02:00 AM 136 mmHg 84 mmHg 71 bpm 16 rpm 97.5 F 234 lbs 97 % 06/16/2010 10:29:00 AM 140 mmHg 80 mmHg 65 bpm 20 rpm 96.9 F 236 lbs 98 % 02/18/2010 8:45:00 AM 125 mmHg 80 mmHg 87 bpm 98.2 F 229.375 lbs 02/17/2010 9:16:00 AM 130 mmHg 80 mmHg 80 bpm 16 rpm 95.9 F 232.375 lbs 98 % 01/20/2010 8:48:00 AM 154 mmHg 88 mmHg 72 bpm 24 F 234.312 lbs 92 % 12/07/2009 3:49:00 PM 130 mmHg 84 mmHg 70 bpm 16 rpm 97.7 F 235.125 lbs 09/21/2009 1:24:00 PM 150 mmHg 100 mmHg 80 bpm 16 rpm 98.3 F 232.25 lbs 07/27/2009 3:05:00 PM 170 mmHg 88 mmHg 70 bpm 16 rpm 97.5 F 227.25 lbs 06/21/2009 9:05:00 AM 142 mmHg 88 mmHg 80 bpm 20 rpm 97 F 227.375 lbs 05/20/2009 9:16:00 AM 124 mmHg 80 mmHg 80 bpm 18 rpm 96.1 F 228.125 lbs 05/06/2009 10:09:00 AM 158 mmHg 100 mmHg 90 bpm 16 rpm 97.1 F 227.125 lbs 04/12/2009 9:13:00 AM 168 mmHg 100 mmHg 80 bpm 18 rpm 97.2 F 04/05/2009 9:58:00 AM 150 mmHg 102 mmHg 88 bpm 20 rpm 96 F 229.375 lbs 67 in 35.9248 kg/m 2.2177 m Social History Name Description Comments 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 Minimal Amount of Exercise (Once weekly or less) disabeled Tobacco Former smoker quit smoking when she was 16yo Alcohol Use - Rare Grown Children Did not graduate from High School Denies illicit substance abuse Did not serve in History of Procedures Date Ordered Description Order Status 03/07/2011 12:00 AM COMPREHEN METABOLIC PANEL Reviewed 03/07/2011 12:00 AM LIPID PANEL Reviewed 03/07/2011 12:00 AM COMPLETE CBC W/AUTO DIFF WBC Reviewed 03/07/2011 12:00 AM DRAIN/INJ JOINT/BURSA W/O US Reviewed 05/15/2011 12:00 AM COMPLETE CBC W/AUTO DIFF WBC Reviewed 05/15/2011 12:00 AM COMPREHEN METABOLIC PANEL Reviewed 05/15/2011 12:00 AM CHEST X-RAY 2VW FRONTAL&LATL Reviewed 06/01/2011 12:00 AM COMPREHEN METABOLIC PANEL Reviewed 06/01/2011 12:00 AM LIPID PANEL Reviewed 06/01/2011 12:00 AM PROTHROMBIN TIME Reviewed 06/01/2011 12:00 AM COMPLETE CBC W/AUTO DIFF WBC Reviewed 06/05/2011 12:00 AM PROTHROMBIN TIME Reviewed 06/07/2011 12:00 AM COMPREHEN METABOLIC PANEL Reviewed 06/07/2011 12:00 AM LIPID PANEL Reviewed 06/07/2011 12:00 AM COMPLETE CBC W/AUTO DIFF WBC Reviewed 07/11/2011 12:00 AM COMPREHEN METABOLIC PANEL Reviewed 07/11/2011 12:00 AM COMPLETE CBC W/AUTO DIFF WBC Reviewed 07/11/2011 12:00 AM PROTHROMBIN TIME Reviewed 07/11/2011 12:00 AM ASSAY OF TROPONIN QUANT Reviewed 07/11/2011 12:00 AM CREATINE MB FRACTION Reviewed 07/11/2011 12:00 AM ELECTROCARDIOGRAM COMPLETE Reviewed 07/11/2011 12:00 AM CHEST X-RAY 2VW FRONTAL&LATL Reviewed 07/11/2011 12:00 AM THER/PROPH/DIAG INJ SC/IM Reviewed 07/11/2011 12:00 AM Toradol 15 Mg,[facility]#[id number]~Ron Reviewed 02/23/2016 12:00 AM COMPLETE CBC W/AUTO DIFF WBC Reviewed 02/23/2016 12:00 AM COMPREHEN METABOLIC PANEL Reviewed 02/23/2016 12:00 AM URNLS DIP STICK/TABLET RGNT AUTO W/O MICROSCOPY Reviewed 07/24/2011 12:00 AM PROTHROMBIN TIME Reviewed 04/11/2016 12:00 AM ELECTROCARDIOGRAM COMPLETE Reviewed 04/05/2016 12:00 AM CHEST X-RAY 2VW FRONTAL&LATL Reviewed 04/21/2016 12:00 AM THERAPEUTIC PROPHYLACTIC/DX INJECTION SUBQ/IM Reviewed 04/21/2016 12:00 AM Decadron 8mg Injection, [facility] Medicare Reviewed 06/06/2016 12:00 AM EXTREMITY STUDY Returned 06/06/2016 12:00 AM X-RAY EXAM SERIES ABDOMEN Returned 06/15/2016 12:[address] ABD & PELV W/CONTRAST Reviewed 07/25/2016 12:00 AM METABOLIC PANEL TOTAL CA Returned 07/25/2016 12:00 AM URNLS DIP STICK/TABLET RGNT AUTO W/O MICROSCOPY Returned 07/25/2016 12:00 AM X-RAY EXAM OF LOWER LEG Returned 07/25/2016 12:00 AM X-RAY EXAM OF ABDOMEN Returned 08/23/2016 12:00 AM MRI BRAIN STEM W/O & W/DYE Returned 08/23/2016 12:00 AM TTE W/DOPPLER COMPLETE Returned 08/23/2016 12:00 AM EXTRACRANIAL BILAT STUDY Returned 09/07/2016 12:00 AM Imitrex 6 mg Reviewed 09/15/2016 12:00 AM Consult/Referral Reviewed 01/23/2012 12:00 AM NERVE CONDUCTION, MOTOR Reviewed 01/23/2012 12:00 AM NERVE CONDUCTION, SENSORY Reviewed 01/23/2012 12:00 AM MUSC TEST DONE W/N TEST COMP Reviewed 07/27/2009 12:00 AM Toradol injection Reviewed 07/27/2009 12:00 AM Phenergan 50 Mg Im Reviewed 07/27/2009 12:00 AM THER/PROPH/DIAG INJ SC/IM Reviewed 09/21/2009 12:00 AM X-RAY EXAM KNEE 4 OR MORE Reviewed 04/12/2009 12:00 AM Toradol 30 Mg,[facility]#[id number] Reviewed 04/12/2009 12:00 AM Phenergan 25 Mg Im Reviewed 02/17/2010 12:00 AM LIPID PANEL Reviewed 02/17/2010 12:00 AM COMPLETE CBC W/AUTO DIFF WBC Reviewed 02/17/2010 12:00 AM COMPREHEN METABOLIC PANEL Reviewed 02/17/2010 12:00 AM ASSAY THYROID STIM HORMONE Reviewed 05/06/2009 12:00 AM THER/PROPH/DIAG INJ SC/IM Reviewed 05/06/2009 12:00 AM Phenergan 25 Mg Im Reviewed 12/23/2013 12:00 AM EGD DIAGNOSTIC BRUSH WASH Reviewed 12/23/2013 12:00 AM Screening, Colonoscopy,Colorectal Reviewed 06/16/2010 12:00 AM DRAIN/INJ JOINT/BURSA W/O US Reviewed 06/16/2010 12:00 AM Kenalog 40 mg [id number] IBRAHIMA Reviewed 08/02/2010 12:00 AM THER/PROPH/DIAG INJ SC/IM Reviewed 08/02/2010 12:00 AM Depo-Medrol 120 Mg Im IBRAHIMA Reviewed 10/20/2010 12:00 AM Phenergan 25 Mg Im [facility] [id number] (Physiatry) Reviewed 10/20/2010 12:00 AM Toradol, 60mg [facility]#[id number] Reviewed 10/20/2010 12:00 AM THER/PROPH/DIAG INJ SC/IM Reviewed 11/04/2010 12:00 AM THER/PROPH/DIAG INJ SC/IM Reviewed 11/04/2010 12:00 AM Stadol 1mg Reviewed 11/04/2010 12:00 AM Vistaril 25 Mg Im [facility]# [id number] Reviewed 12/05/2010 12:00 AM COMPLETE CBC W/AUTO DIFF WBC Reviewed 12/05/2010 12:00 AM COMPREHEN METABOLIC PANEL Reviewed 12/05/2010 12:00 AM LIPID PANEL Reviewed 12/07/2010 12:00 AM LIPID PANEL Reviewed Results Summary Date and Description Results 06/21/2009 9:07 AM Colonoscopy-Women and Men over 50 Normal Mammogram -Women over 40 Normal Pap Smear Declined 02/18/2010 8:36 AM TRIGLYCERIDES 159.0 mg/dLCHOLESTEROL 186.0 mg/dLHDL 41.0 mg /dLTOT CHOL/HDL 4.5 LDL (CALC) 113.0 mg/dLTSH 4.960 uIU/mLWBC 9.8 RBC 3.95 HGB 12.20 g/dLHCT 36.60 %MCV 93.0 fLMCH 30.90 pgMCHC 33.30 g/dLRDW SD 48 RDW CV 14.10 %MPV 11.50 fLPLT 251 NRBC# 0.00 NRBC% 0.0 %NEUT 66.80 %%LYMP 23.80 %%MONO 7.80 %%EOS 0.90 %%BASO 0.70 %#NEUT 6.57 #LYMP 2.34 #MONO 0.77 #EOS 0.09 #BASO 0.07 MANUAL DIFF NOT IND GLUCOSE 108.0 mg/dLSODIUM 139.0 mmol/LPOTASSIUM 3.50 mmol/LCHLORIDE 107.0 mmol/LCO2 21.0 mmol/LBUN 12.0 mg/dLCREATININE 0.80 mg/ dLSGOT/AST 13.0 IU/LSGPT/ALT 12.0 IU/LALK PHOS 70.0 IU/LTOTAL PROTEIN 6.60 g/ dLALBUMIN 3.80 g/dLTOTAL BILI 0.80 mg/dLCALCIUM 8.70 mg/dLAGE 59 GFR NonAA 73 GFR AA 88 eGFR >60 mL/min/1.73 m2eGFR AA* >60 12/06/2010 8:05 AM WBC 8.8 RBC 3.98 HGB 12.90 g/dLHCT 37.50 %MCV 94.0 fLMCH 32.40 pgMCHC 34.40 g/dLRDW SD 46 RDW CV 13.30 %MPV 12.10 fLPLT 246 NRBC# 0.00 NRBC% 0.0 %NEUT 59.70 %%LYMP 29.20 %%MONO 8.50 %%EOS 2.0 %%BASO 0.60 %#NEUT 5.26 #LYMP 2.57 #MONO 0.75 #EOS 0.18 #BASO 0.05 MANUAL DIFF NOT IND GLUCOSE 91.0 mg/dLSODIUM 139.0 mmol/LPOTASSIUM 4.50 mmol/LCHLORIDE 108.0 mmol/LCO2 20.0 mmol/LBUN 10.0 mg/dLCREATININE 0.70 mg/dLSGOT/AST 22.0 IU/LSGPT/ALT 16.0 IU/ LALK PHOS 79.0 IU/LTOTAL PROTEIN 6.50 g/dLALBUMIN 3.60 g/dLTOTAL BILI 0.80 mg/ dLCALCIUM 8.60 mg/dLAGE 60 GFR NonAA 85 GFR AA 103 eGFR >60 mL/min/1.73 m2eGFR AA* >60 TRIGLYCERIDES 186.0 mg/dLCHOLESTEROL 242.0 mg/dLHDL 46.0 mg/dLTOT CHOL/ HDL 5.3 LDL (CALC) 159.0 mg/dL 03/07/2011 10:00 AM WBC 8.6 RBC 3.89 HGB 12.20 g/dLHCT 36.20 %MCV 93.0 fLMCH 31.40 pgMCHC 33.70 g/dLRDW SD 47 RDW CV 13.90 %MPV 11.80 fLPLT 244 NRBC# 0.00 NRBC% 0.0 %NEUT 62.20 %%LYMP 28.50 %%MONO 6.30 %%EOS 2.30 %%BASO 0.70 %#NEUT 5.38 #LYMP 2.46 #MONO 0.54 #EOS 0.20 #BASO 0.06 MANUAL DIFF NOT IND GLUCOSE 88.0 mg/dLSODIUM 140.0 mmol/LPOTASSIUM 4.20 mmol/LCHLORIDE 109.0 mmol/LCO2 24.0 mmol/LBUN 13.0 mg/dLCREATININE 0.70 mg/dLSGOT/AST 13.0 IU/LSGPT/ALT 12.0 IU/ LALK PHOS 71.0 IU/LTOTAL PROTEIN 6.10 g/dLALBUMIN 3.70 g/dLTOTAL BILI 0.60 mg/ dLCALCIUM 8.80 mg/dLAGE 60 GFR NonAA 85 GFR AA 103 eGFR >60 mL/min/1.73 m2eGFR AA* >60 TRIGLYCERIDES 199.0 mg/dLCHOLESTEROL 200.0 mg/dLHDL 39.0 mg/dLTOT CHOL/ HDL 5.1 LDL (CALC) 121.0 mg/dL 05/15/2011 9:48 AM WBC 10.1 RBC 4.33 HGB 13.70 g/dLHCT 40.60 %MCV 94.0 fLMCH 31.60 pgMCHC 33.70 g/dLRDW SD 48 RDW CV 13.90 %MPV 11.30 fLPLT 234 NRBC# 0.00 NRBC% 0.0 %NEUT 63.60 %%LYMP 26.0 %%MONO 8.50 %%EOS 1.50 %%BASO 0.40 %#NEUT 6.42 #LYMP 2.63 #MONO 0.86 #EOS 0.15 #BASO 0.04 MANUAL DIFF NOT IND GLUCOSE 108.0 mg/dLSODIUM 139.0 mmol/LPOTASSIUM 4.30 mmol/LCHLORIDE 106.0 mmol/LCO2 22.0 mmol/LBUN 16.0 mg/dLCREATININE 0.90 mg/dLSGOT/AST 15.0 IU/LSGPT/ALT 14.0 IU /LALK PHOS 91.0 IU/LTOTAL PROTEIN 6.70 g/dLALBUMIN 4.0 g/dLTOTAL BILI 0.90 mg/ dLCALCIUM 9.20 mg/dLAGE 61 GFR NonAA 63 GFR AA 76 eGFR >60 mL/min/1.73 m2eGFR AA * >60 06/05/2011 8:47 AM PROTIME 21.10 secsINR 2.2 WBC 11.3 RBC 4.12 HGB 12.80 g/ dLHCT 38.50 %MCV 93.0 fLMCH 31.10 pgMCHC 33.20 g/dLRDW SD 48 RDW CV 14.20 %MPV 11.70 fLPLT 289 NRBC# 0.00 NRBC% 0.0 %NEUT 43.70 %%LYMP 43.80 %%MONO 10.10 %% EOS 2.0 %%BASO 0.40 %#NEUT 4.92 #LYMP 4.94 #MONO 1.14 #EOS 0.23 #BASO 0.05 MANUAL DIFF NOT IND Coumadin Plan cont same Next Lab Draw Repeat in 2 weeks GLUCOSE 81.0 mg/dLSODIUM 139.0 mmol/LPOTASSIUM 3.90 mmol/LCHLORIDE 110.0 mmol/ LCO2 20.0 mmol/LBUN 17.0 mg/dLCREATININE 0.90 mg/dLSGOT/AST 28.0 IU/LSGPT/ALT 60.0 IU/LALK PHOS 60.0 IU/LTOTAL PROTEIN 5.90 g/dLALBUMIN 3.70 g/dLTOTAL BILI 0.40 mg/dLCALCIUM 8.70 mg/dLAGE 61 GFR NonAA 63 GFR AA 76 eGFR >60 mL/min/1.73 m2eGFR AA* >60 TRIGLYCERIDES 271.0 mg/dLCHOLESTEROL 251.0 mg/dLHDL 35.0 mg/ dLTOT CHOL/HDL 7.2 LDL (CALC) 162.0 mg/dL 06/19/2011 8:55 AM PROTIME POCT 17.60 secsINR POCT 1.5 06/19/2011 8:55 PM Coumadin Plan 3MG mwf2.5MG trss Next Lab Draw Repeat in 1 wk 06/29/2011 8:45 AM PROTIME POCT 15.50 secsINR POCT 1.3 Coumadin Plan 3mg MWF3.5mg TRSS Next Lab Draw Repeat in 1 wk 07/06/2011 8:24 AM PROTIME POCT 12.80 secsINR POCT 1.1 07/11/2011 9:40 AM WBC 10.0 RBC 4.08 HGB 12.80 g/dLHCT 38.30 %MCV 94.0 fLMCH 31.40 pgMCHC 33.40 g/dLRDW SD 49 RDW CV 14.30 %MPV 11.80 fLPLT 261 NRBC# 0.00 NRBC% 0.0 %NEUT 63.90 %%LYMP 25.30 %%MONO 9.70 %%EOS 0.50 %%BASO 0.60 %#NEUT 6.40 #LYMP 2.53 #MONO 0.97 #EOS 0.05 #BASO 0.06 MANUAL DIFF NOT IND GLUCOSE 105.0 mg/dLSODIUM 141.0 mmol/LPOTASSIUM 3.80 mmol/LCHLORIDE 110.0 mmol/LCO2 22.0 mmol/LBUN 9.0 mg/dLCREATININE 0.80 mg/dLSGOT/AST 18.0 IU/LSGPT/ALT 19.0 IU/ LALK PHOS 72.0 IU/LTOTAL PROTEIN 6.90 g/dLALBUMIN 4.0 g/dLTOTAL BILI 1.40 mg/ dLCALCIUM 9.20 mg/dLAGE 61 GFR NonAA 73 GFR AA 88 eGFR >60 mL/min/1.73 m2eGFR AA * >60 TROPONIN-I AD < 0.04 ng/mLPROTIME 12.90 secsINR 1.2 CPK 63 IU/LTOTAL MB 0.4 INDEX 0.6 Coumadin Plan 4mg MWF3.5mg TRSS Next Lab Draw Repeat in 1 wk 07/18/2011 8:42 AM PROTIME POCT 27.20 secsINR POCT 2.3 07/19/2011 8:45 AM PROTIME POCT 24.70 secsINR POCT 2.1 07/19/2011 3:31 PM Coumadin Plan cont same dose Next Lab Draw Repeat in 1 wk 07/20/2011 8:15 AM PROTIME POCT 19.60 secsINR POCT 1.6 Coumadin Plan 6mg daily 07/21/2011 8:12 AM PROTIME POCT 15.80 secsINR POCT 1.3 Coumadin Plan 7mg daily 07/24/2011 3:27 PM PROTIME POCT 19.30 secsINR POCT 1.6 07/27/2011 8:10 AM PROTIME POCT 30.10 secsINR POCT 2.5 Coumadin Plan cont same Next Lab Draw Repeat in 3 days 07/31/2011 8:02 AM PROTIME POCT 36.20 secsINR POCT 3.0 Coumadin Plan cont same Next Lab Draw Repeat in 3 days 08/03/2011 10:55 AM PROTIME POCT 38.50 secsINR POCT 3.2 Coumadin Plan 8mg TRSS7.5mg MWF 08/11/2011 8:15 AM PROTIME POCT 59.50 secsINR POCT 5.0 CALLED TO/BY FREDY HODGE [id number] @ 0850 08/14/2011 8:20 AM PROTIME POCT 21.90 secsINR POCT 1.8 Coumadin Plan 7mg daily Next Lab Draw Repeat in 1 wk 08/17/2011 8:25 AM PROTIME POCT 18.60 secsINR POCT 1.6 Coumadin Plan 7.5mg daily Next Lab Draw Repeat in 1 wk 08/24/2011 9:12 AM PROTIME POCT 46.80 secsINR POCT 3.9 Coumadin Plan 7mg TRSS7.5mg MWF Next Lab Draw Repeat in 1 wk 08/31/2011 8:25 AM PROTIME POCT 47.20 secsINR POCT 3.9 Coumadin Plan 7mg daily Next Lab Draw Repeat in 1 wk 09/04/2011 8:35 AM WBC 8.3 RBC 4.28 HGB 13.10 g/dLHCT 40.30 %MCV 94.0 fLMCH 30.60 pgMCHC 32.50 g/dLRDW SD 50 RDW CV 14.70 %MPV 12.20 fLPLT 285 NRBC# 0.00 NRBC% 0.0 %NEUT 55.40 %%LYMP 35.60 %%MONO 6.30 %%EOS 1.90 %%BASO 0.80 %#NEUT 4.60 #LYMP 2.96 #MONO 0.52 #EOS 0.16 #BASO 0.07 MANUAL DIFF NOT IND GLUCOSE 93.0 mg/dLSODIUM 143.0 mmol/LPOTASSIUM 4.10 mmol/LCHLORIDE 107.0 mmol/LCO2 24.0 mmol/LBUN 13.0 mg/dLCREATININE 0.70 mg/dLSGOT/AST 25.0 IU/LSGPT/ALT 32.0 IU/ LALK PHOS 80.0 IU/LTOTAL PROTEIN 6.0 g/dLALBUMIN 4.0 g/dLTOTAL BILI 0.70 mg/ dLCALCIUM 9.40 mg/dLAGE 61 GFR NonAA 85 GFR AA 103 eGFR 60 eGFR AA* 60 TRIGLYCERIDES 207.0 mg/dLCHOLESTEROL 233.0 mg/dLHDL 35.0 mg/dLTOT CHOL/HDL 6.7 LDL (CALC) 157.0 mg/dL 02/23/2016 9:20 AM GLUCOSE 95.0 mg/dLSODIUM 141.0 mmol/LPOTASSIUM 3.90 mmol/ LCHLORIDE 109.0 mmol/LCO2 25.0 mmol/LBUN 9.0 mg/dLCREATININE 0.80 mg/dLSGOT/AST 18.0 IU/LSGPT/ALT 20.0 IU/LALK PHOS 74.0 IU/LTOTAL PROTEIN 6.80 g/dLALBUMIN 4.10 g/dLTOTAL BILI 1.20 mg/dLCALCIUM 9.30 mg/dLAGE 65 GFR NonAA 72 GFR AA 87 eGFR >60 mL/min/1.73meGFR AA* >60 COLOR YELLOW APPEARANCE CLEAR SPEC GRAV 1.020 pH 5.5 PROTEIN NEGATIVE GLUCOSE NEGATIVE mg/dLKETONE NEGATIVE BILIRUBIN NEGATIVE BLOOD TRACE-INTACT NITRITE NEGATIVE LEUK SCREEN TRACE MICRO INDICATED? SEE BELOW WBC/HPF 5-10 RBC/HPF 0-5 CASTS/LPF NEGATIVE /LPFCRYSTALS NEGATIVE MUCOUS THRDS FEW BACTERIA FEW EPITH CELLS FEW SQUAMOUS /HPFTRICHOMONAS NEGATIVE YEAST NEGATIVE CULT SET UP? YES WBC 6.4 RBC 4.05 HGB 12.60 g/dLHCT 38.80 %MCV 96.0 fLMCH 31.10 pgMCHC 32.50 g/dLRDW SD 48 RDW CV 13.50 %MPV 11.20 fLPLT 245 NRBC# 0.00 NRBC% 0.0 %NEUT 47.80 %%LYMP 38.90 %%MONO 8.40 %%EOS 3.30 %%BASO 1.40 %#NEUT 3.06 #LYMP 2.49 #MONO 0.54 #EOS 0.21 #BASO 0.09 MANUAL DIFF NOT IND 07/25/2016 9:50 AM GLUCOSE 101.0 mg/dLSODIUM 141.0 mmol/LPOTASSIUM 3.70 mmol/ LCHLORIDE 109.0 mmol/LCO2 23.0 mmol/LBUN 13.0 mg/dLCREATININE 0.80 mg/dLCALCIUM 9.0 mg/dLAGE 66 GFR NonAA 72 GFR AA 87 eGFR >60 mL/min/1.73meGFR AA* >60 COLOR YELLOW APPEARANCE CLEAR SPEC GRAV 1.025 pH 5.0 PROTEIN NEGATIVE GLUCOSE NEGATIVE mg/dLKETONE NEGATIVE BILIRUBIN NEGATIVE BLOOD NEGATIVE NITRITE NEGATIVE LEUK SCREEN NEGATIVE MICRO INDICATED? NOT INDICATED WBC 6.1 RBC 3.91 HGB 11.90 g/dLHCT 37.70 %MCV 96.0 fLMCH 30.40 pgMCHC 31.60 g/dLRDW SD 51 RDW CV 14.40 %MPV 10.80 fLPLT 247 NRBC# 0.00 NRBC% 0.0 %NEUT 43.80 %%LYMP 44.40 %%MONO 7.20 %%EOS 3.30 %%BASO 1.10 %#NEUT 2.68 #LYMP 2.71 #MONO 0.44 #EOS 0.20 #BASO 0.07 MANUAL DIFF NOT IND 09/20/2016 6:40 AM GLUCOSE 87.0 mg/dLSODIUM 141.0 mmol/LPOTASSIUM 4.40 mmol/ LCHLORIDE 113.0 mmol/LCO2 21.0 mmol/LBUN 12.0 mg/dLCREATININE 0.70 mg/dLSGOT/ AST 16.0 IU/LSGPT/ALT 15.0 IU/LALK PHOS 64.0 IU/LTOTAL PROTEIN 5.90 g/dLALBUMIN 3.40 g/dLTOTAL BILI 0.60 mg/dLCALCIUM 8.60 mg/dLAGE 66 GFR NonAA 83 GFR AA 101 eGFR >60 mL/min/1.73meGFR AA* >60 WBC 6.6 RBC 4.11 HGB 12.60 g/dLHCT 37.20 % MCV 91.0 fLMCH 30.70 pgMCHC 33.90 g/dLRDW SD 45 RDW CV 13.90 %MPV 12.10 fLPLT 170 NRBC# 0.00 NRBC% 0.0 %NEUT 44.40 %%LYMP 39.60 %%MONO 8.30 %%EOS 5.0 %%BASO 1.20 %#NEUT 2.93 #LYMP 2.62 #MONO 0.55 #EOS 0.33 #BASO 0.08 MANUAL DIFF NOT IND 09/21/2016 6:25 AM WBC 5.5 RBC 3.87 HGB 11.70 g/dLHCT 36.0 %MCV 93.0 fLMCH 30.20 pgMCHC 32.50 g/dLRDW SD 47 RDW CV 13.80 %MPV 10.90 fLPLT 200 NRBC# 0.00 NRBC% 0.0 %NEUT 51.90 %%LYMP 33.90 %%MONO 7.40 %%EOS 5.10 %%BASO 1.30 %#NEUT 2.87 #LYMP 1.87 #MONO 0.41 #EOS 0.28 #BASO 0.07 MANUAL DIFF NOT IND GLUCOSE 93.0 mg/dLSODIUM 142.0 mmol/LPOTASSIUM 4.10 mmol/LCHLORIDE 114.0 mmol/LCO2 21.0 mmol/LBUN 11.0 mg/dLCREATININE 0.70 mg/dLCALCIUM 8.10 mg/dLAGE 66 GFR NonAA 83 GFR AA 101 eGFR >60 mL/min/1.73meGFR AA* >60 History Of Immunizations Not available. History of Past Illness Name Date of Onset Comments Essential Hypertension Apr 05 2009 10:14AM Hyperlipidemia Apr 05 2009 10:14AM Gastritis Apr 05 2009 10:14AM Gastroesophageal Reflux Apr 05 2009 10:14AM Migraine Apr 12 2009 9:15AM Hypertension Apr 12 2009 9:15AM Anemia Asthma Hypertension Gastroesophageal Reflux Edema Hyperlipidemia Essential Hypertension May 06 2009 10:12AM Hyperlipidemia May 06 2009 10:12AM Constipation May 06 2009 10:12AM Gastritis May 06 2009 10:12AM Gastroesophageal Reflux May 06 2009 10:12AM Essential Hypertension May 20 2009 9:18AM Hyperlipidemia May 20 2009 9:18AM Gastroesophageal Reflux May 20 2009 9:18AM Essential Hypertension Jun 21 2009 9:11AM Hyperlipidemia Jun 21 2009 9:11AM Gastroesophageal Reflux Jun 21 2009 9:11AM Tinea Corporis Jun 21 2009 9:11AM Essential Hypertension Jul 27 2009 3:07PM Hyperlipidemia Jul 27 2009 3:07PM Gastroesophageal Reflux Jul 27 2009 3:07PM Tinea Corporis Jul 27 2009 3:07PM Migraine Jul 27 2009 3:07PM Otitis Externa, Acute Jul 27 2009 3:07PM Essential Hypertension Sep 21 2009 1:36PM Hyperlipidemia Sep 21 2009 1:36PM Gastroesophageal Reflux Sep 21 2009 1:36PM Pain in joint; lower leg/knee Sep 21 2009 1:36PM Abscess Dec 07 2009 3:52PM Overactive bladder Dec 07 2009 3:52PM Sciatica Jan 20 2010 8:54AM Thrombophlebitis Overactive bladder Abdominal Pain 12/24/2013 Duodenal ulcer 12/24/2013 Encounter for screening colonoscopy 12/24/2013 Essential Hypertension Feb 17 2010 9:18AM Hyperlipidemia Feb 17 2010 9:18AM Gastroesophageal Reflux Feb 17 2010 9:18AM Pain in joint; lower leg/knee Feb 17 2010 9:18AM Essential Hypertension Feb 18 2010 8:51AM Hyperlipidemia Feb 18 2010 8:51AM Gastroesophageal Reflux Feb 18 2010 8:51AM Upper Respiratory Infection Feb 18 2010 8:51AM Upper Respiratory Infection Feb 17 2010 9:18AM Essential Hypertension Jun 16 2010 10:30AM Hyperlipidemia Jun 16 2010 10:30AM Gastroesophageal Reflux Jun 16 2010 10:30AM Low Back Pain Jun 16 2010 10:30AM Low Back Pain b 2010 12:49PM Rhinitis, Allergic Aug 02 2010 11:03AM LLQ pain 02/23/2016 Diverticulitis 04/04/2016 IBS (irritable bowel syndrome) 02/23/2016 Dyspepsia 02/23/2016 Abdominal wall pain 08/08/2016 Migraine Oct 20 2010 3:09PM Syncope Seizure Migraine Nov 04 2010 3:04PM Essential Hypertension Dec 05 2010 9:20AM Hyperlipidemia Dec 05 2010 9:20AM Gastroesophageal Reflux Dec 05 2010 9:20AM Low Back Pain Dec 05 2010 9:20AM Hyperlipidemia Dec 07 2010 2:29PM Essential Hypertension Mar 07 2011 9:12AM Hyperlipidemia Mar 07 2011 9:12AM Gastroesophageal Reflux Mar 07 2011 9:12AM Anemia Mar 07 2011 9:12AM Asthma Mar 07 2011 9:12AM Edema Mar 07 2011 9:12AM Pain in joint; Hip Mar 07 2011 9:44AM Low Back Pain Mar 07 2011 9:44AM Bronchitis, Acute May 15 2011 9:02AM Shortness Of Breath May 15 2011 9:02AM Essential Hypertension Feb 2011 2:49PM Hyperlipidemia Feb 2011 2:49PM Gastroesophageal Reflux Feb 2011 2:49PM Anemia Feb 9 2011 2:49PM Asthma Feb 9 2011 2:49PM Edema Feb 9 2011 2:49PM Deep Vein Thrombosis Feb 9 2011 2:49PM Pulmonary Embolism Feb 9 2011 2:49PM Deep Vein Thrombosis Feb 13 2011 8:48AM Essential Hypertension Feb 15 2011 9:00AM Hyperlipidemia b 15 2011 9:00AM Gastroesophageal Reflux Jun 07 2011 9:00AM Anemia Feb 15 2011 9:00AM Deep Vein Thrombosis Feb 15 2011 9:00AM Pulmonary Embolism Feb 2011 9:00AM Asthma Feb 15 2011 9:00AM Edema b 15 2011 9:00AM Essential Hypertension Jul 11 2011 9:05AM Hyperlipidemia Jul 11 2011 9:05AM Gastroesophageal Reflux Jul 11 2011 9:05AM Anemia Jul 11 2011 9:05AM Deep Vein Thrombosis Jul 11 2011 9:05AM Pulmonary Embolism Jul 11 2011 9:05AM Asthma Jul 11 2011 9:05AM Edema Jul 11 2011 9:05AM Shortness of breath Jul 11 2011 9:05AM Chest Pain, Atypical Jul 11 2011 9:05AM Essential Hypertension Jul 24 2011 2:39PM Hyperlipidemia Jul 24 2011 2:39PM Gastroesophageal Reflux Jul 24 2011 2:39PM Anemia Jul 24 2011 2:39PM Deep Vein Thrombosis Jul 24 2011 2:39PM Pulmonary Embolism Jul 24 2011 2:39PM Asthma Jul 24 2011 2:39PM Edema Jul 24 2011 2:39PM 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; peroneal nerve Jan 23 2012 10:07AM Abdominal Pain Dec 23 2013 10:44AM Encounter for screening colonoscopy Dec 23 2013 10:44AM Irritable bowel syndrome Jan 21 2014 8:52AM LLQ pain Feb 23 2016 8:51AM Diverticulitis Feb 23 2016 8:51AM IBS (irritable bowel syndrome) Feb 23 2016 8:51AM Dyspepsia Feb 23 2016 8:51AM Diverticulitis Apr 04 2016 3:04PM Preop examination Apr 05 2016 10:33AM Moderate Acute Cough Apr 21 2016 5:20PM Moderate Acute Chest congestion Apr 21 2016 5:20PM COPD (chronic obstructive pulmonary disease) with acute bronchitis Apr 21 2016 5:20PM Diverticulitis Apr 27 2016 9:59AM Left leg pain Jun 06 2016 3:03PM Swelling of lower extremity Jun 06 2016 3:03PM Bowel obstruction Jun 06 2016 3:03PM Early satiety Jun 06 2016 3:03PM Pain Jun 12 2016 1:46PM Swelling Jun 12 2016 1:46PM Left lower quadrant pain Jun 15 2016 1:51PM Elevated d-dimer Jun 15 2016 1:51PM Facial numbness Jun 15 2016 1:51PM Back Pain Jul 25 2016 8:42AM Flank pain Jul 25 2016 8:42AM Dysuria Jul 25 2016 8:42AM Left leg pain Jul 25 2016 8:42AM Edema of left lower extremity Jul 25 2016 8:42AM Abdominal wall pain Aug 08 2016 9:18AM Pain in right knee Jul 25 2016 8:42AM Pain in left knee Jul 25 2016 8:42AM Other chronic pain Jul 25 2016 8:42AM Syncope Aug 23 2016 10:47AM Syncope Aug 23 2016 10:50AM Melena Aug 23 2016 10:50AM Polyuria Aug 23 2016 10:50AM Abdominal wall pain Sep 05 2016 9:50AM Seizure Disorder Sep 07 2016 2:44PM Migraine aura, persistent, intractable, with status migrainosus Sep 07 2016 2 :44PM Headache Sep 07 2016 4:39PM Migraine Sep 15 2016 10:59AM Seizure Sep 15 2016 10:59AM Osteoarthritis Aug 23 2016 8:21AM Frequent falls Aug 23 2016 8:21AM Pseudoseizure Aug 23 2016 8:21AM Diaphoresis Aug 23 2016 8:21AM Candidiasis of skin Oct 16 2016 3:43PM Nausea Oct 16 2016 3:43PM Gait difficulty Oct 16 2016 3:43PM Payers Insurance Name Company Name Plan Name Plan Number Policy Number Policy Group Number Start Date [employer] [place] [id number] N/A Medicare Part B Medicare Of [place] [id number] Monday, 2006 [employer] [id number] Tuesday, 2014 [employer] Shamar 50 PERCENT Thursday, April 23, 2015 History of Encounters Visit Date Visit Type Provider 10/16/2016 Office visit Rylee Palacios MD 09/20/2016 [facility] Lyndon Hill MD 09/07/2016 Office visit Rylee Palacios MD 09/05/2016 Office visit Manny Mckeon DO 08/23/2016 Office visit Rylee Palacios MD 08/09/2016 Hospital Laurita Espino MD 08/08/2016 Hospital Laurita Espino MD 08/08/2016 Office visit Manny Mckeon DO 07/25/2016 Office visit Rylee Palacios MD 06/15/2016 Office visit Fidel Forrest APRN 06/14/2016 Hospital Laurita Espino MD 06/06/2016 Office visit Rylee Palacios MD 06/04/2016 Hospital Laurita Espino MD 05/31/2016 Radha Espino MD 05/24/2016 Surgery Manny Mckeon DO 05/17/2016 Radha Espino MD 05/11/2016 Hospital Manny Mckeon DO 05/11/2016 Surgery Manny Mckeon DO 04/27/2016 Laboratory Laurita Espino MD 04/21/2016 Office visit COBY DONALDSON 04/04/2016 Office visit Mannyaxel Mckeon DO 02/23/2016 Office visit Manny Mckeon DO 09/05/2015 Hospital Laurita Espino MD 09/05/2015 Hospital Laurita Espino MD 01/21/2014 Office visit Manny Mckeon DO 01/05/2014 [facility] Manny Linda DO 01/05/2014 [facility] Laurita Espino MD 12/23/2013 Office visit Manny Mckeon DO 01/23/2012 Procedures Abner Lassiter MD 07/24/2011 Office visit Katherine Sutherland MD 07/17/2011 [facility] Anjana Reyes MD 07/16/2011 Hospital Laurita Espino MD 07/16/2011 [facility] [place] Fu[place] MD 07/15/2011 [facility] [place] Fu[place] MD 07/14/2011 [facility] Laurita Espino MD 07/14/2011 [facility] DO 07/11/2011 [facility] Laurita Espino MD 07/11/2011 Office visit Katherine Sutherland MD 06/07/2011 Office visit Katherine Sutherland MD 06/01/2011 Office visit Katherine Sutherland MD 05/15/2011 [facility] Laurita Espino MD 05/15/2011 Office visit Mary Wright APRN 03/07/2011 Office visit Katherine Sutherland MD 12/05/2010 Office visit Katherine Sutherland MD 11/04/2010 Office visit Jeanette DONALDSON 10/20/2010 Office visit Mary Wright APRN 08/02/2010 Office visit Katherine Sutherland MD 06/16/2010 Office visit Katherine Sutherland MD 02/18/2010 Office visit Katherine Sutherland MD 02/17/2010 Office visit Katherine Sutherland MD 01/20/2010 Office visit Maria Isabel WEIR 12/07/2009 Office visit Maria Isabel WEIR 09/21/2009 Office visit Katherine Sutherland MD 07/27/2009 Office visit Katherine Sutherland MD 06/21/2009 Office visit Katherine Sutherland MD 05/20/2009 Office visit Katherine Sutherland MD 05/06/2009 Office visit Katherine Sutherland MD 04/12/2009 Nurse visit Katherine Sutherland MD 04/05/2009 Office visit Katherine Sutherland MD 02/17/2009 Office visit Katherine Sutherland MD 02/03/2009 Office visit Katherine Sutherland MD 01/19/2009 Office visit Katherine Sutherland MD 01/13/2009 Office visit Katherine Sutherland MD 01/01/2009 Office visit Chano Velasquez DO 12/22/2008 Nurse visit Chano Velasquez DO
--- OUTSIDE RECORDS SUMMARY | 2016-12-20 09:49 | XMS REPORT | CCD ---
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 Active TALWIN 8002 Drug allergy Active PENICILLIN 25973 Drug allergy HIVES, NAUSEA, HIVES Active DARVOCET-N 100 0 Drug allergy Active AMITIZA 660748 Drug allergy Active ULTRAM 915478 Drug allergy Active MEPERIDINE 6754 Drug allergy NAUSEA AND HIVES. Active FLU VACCINE 0 Drug allergy Active IV DYE {Clinical monitoring unavailable} 0 Drug allergy Active CODEINE 2670 Drug allergy NAUSEA, NAUSEA AND HIVES. Active MORPHINE 7052 Drug allergy Active GABAPENTIN 52860 Drug allergy Active PENTAZOCINE 8001 Drug allergy NAUSEA AND HIVES. Active Active Medications Medication Code Dose Units Frequency Route Modification Start Date/Time Aspirin 81MG Oral Tablet, Enteric Coated 189602 81 MILLIGRAMS DAILY ORAL 09/22/2016 11:05 Prescription Detail 81 MILLIGRAMS ORAL DAILY HYDROcodone bitartrate-acetaminophen 5MG-325MG Oral Tablet 148369 1 EACH EVERY 12 HOURS ORAL 09/22/2016 11: 05 Prescription Detail 1 EACH ORAL EVERY 12 HOURS Lisinopril 10MG Oral Tablet 822134 10 MILLIGRAMS DAILY BY MOUTH 09/22/2016 11:05 Prescription Detail 10 MILLIGRAMS BY MOUTH DAILY ProAir HFA 0.09MG/1Actuation Inhalation Suspension 033976 2 PUFF EVERY 4 HOURS INHALATION 09/22/2016 11:05 Prescription Detail 2 PUFF INHALATION EVERY 4 HOURS Stiolto Respimat 2.5MCG-2.5MCG/1Act Inhalation [place] 1935638 2 PUFF DAILY INHALATION 09/22/2016 11:05 Prescription Detail 2 PUFF INHALATION DAILY Albuterol Sulfate 0.083% Inhalation Solution 881762 1 EACH NEEDED INHALATION 05/17/2016 16:37 Prescription Detail 1 EACH INHALATION NEEDED Citalopram 20MG Oral Tablet 20021021 20 MILLIGRAMS DAILY ORAL 05/17/2016 16:37 Prescription Detail 20 MILLIGRAMS ORAL DAILY Doc-Q-Lace 100MG Oral Capsule, Liquid Filled [id number] 2 TABLET AT BEDTIME ORAL 05/17/2016 16:37 Prescription Detail 2 TABLET ORAL AT BEDTIME Loratadine 10MG Oral Tablet [id number] 10 MILLIGRAMS DAILY ORAL 05/17/2016 16:37 Prescription Detail 10 MILLIGRAMS ORAL DAILY Montelukast Sodium 10MG Oral Tablet [id number] 10 MILLIGRAMS DAILY ORAL 05/17/2016 16:37 Prescription Detail 10 MILLIGRAMS ORAL DAILY Omeprazole 40MG Oral Capsule, Delayed Release [id number] 40 MILLIGRAMS DAILY ORAL 05/17/2016 16:37 Prescription Detail 40 MILLIGRAMS ORAL DAILY Pravastatin Sodium 80MG Oral Tablet [id number] 40 MILLIGRAMS DAILY ORAL 05/17/2016 16:37 Prescription Detail 40 MILLIGRAMS ORAL DAILY Problems Problem Code Start Date Resolved Date Status Syncope and collapse 263639627 09/19/2016 Active Orthostatic hypotension 87696364 09/19/2016 Active Post op pain 765906887 05/11/2016 09/19/2016 Resolved Diverticulitis 235647329 05/11/2016 09/19/2016 Resolved Procedures Procedure Code Procedure Type Date ^UA AUTO DIPSTICK ONLY 585895147 SNOMED CT 05/17/2016 ^CBC W/AUTO DIFF [id number] SNOMED CT 05/17/2016 TROPONIN-I ADV 321939804 SNOMED CT 05/17/2016 UA ROUTINE C&S IF IND 834178134 SNOMED CT 05/17/2016 COMPREHENSIVE METABOLIC PANEL 541537792 SNOMED CT 2016 CBC W/ AUTO DIFF (RFLX MAN DIFF IF IND) [id number] [facility] 05/17/2016 Results COMPREHENSIVE METABOLIC PANEL - Collect Date/Time: 05/17/2016 19:25 Test Name Code Test Result Test Units Test Ref Range GLUCOSE 2345-7 100 MG/DL L=70 H=100 SODIUM 2951-2 135 MEQ/L L=135 H=148 POTASSIUM 2823-3 4.3 MEQ/L L=3.5 H=5.3 CHLORIDE 2075-0 101 MEQ/L L=96 H=110 CO2 2028-9 21 MEQ/L L=22 H=29 BUN 3094-0 17 MG/DL L=8 H=22 CREATININE 2160-0 0.8 MG/DL L=0.6 H=1.6 SGOT/AST 1920-8 22 IU/L L=10 H=40 SGPT/ALT 1742-6 17 IU/L L=8 H=54 ALK PHOS 6768-6 73 IU/L L=35 H=115 TOTAL PROTEIN 2885-2 6.5 G/DL L=5.5 H=8.5 ALBUMIN 1751-7 3.2 G/DL L=3.1 H=5.4 TOTAL BILI 1975-2 0.7 MG/DL L=0.0 H=1.5 CALCIUM 39241-4 8.9 MG/DL L=8.2 H=10.6 AGE 66 yrs GFR NonAA 72 GFR AA 87 eGFR >60 N/A eGFR AA* >60 N/A CBC W/ AUTO DIFF (RFLX MAN DIFF IF IND) - Collect Date/Time: 05/17/2016 19:25 Test Name Code Test Result Test Units Test Ref Range WBC 43143-7 9.6 TH/CMM L=4.5 H=10.8 RBC 789-8 3.78 ML/CMM L=4.20 H=5.40 HGB 718-7 11.7 G/DL L=12.0 H=16.0 HCT 4544-3 35.3 % L=37.0 H=47.0 MCV 93 FL L=81 H=99 MCH 31.0 PG L=27.0 H=33.0 MCHC 33.1 G/DL L=31.0 H=36.0 RDW SD 49 FL L=36 H=50 RDW CV 14.1 % L=0.0 H=14.8 MPV 10.7 FL L=9.3 H=12.5 PLT 777-3 279 TH/CMM L=130 H=440 NRBC# 0.00 TH/CMM L=0.00 H=0.00 NRBC% 0.0 /100WBC L=0.0 H=2.0 %NEUT 67.4 % %LYMP 14.5 % %MONO 11.7 % %EOS 5.2 % %BASO 0.6 % #NEUT 6.47 TH/CMM L=2.10 H=8.20 #LYMP 1.39 TH/CMM L=0.90 H=5.20 #MONO 1.12 TH/CMM L=0.16 H=1.00 #EOS 0.50 TH/CMM L=0.00 H=0.80 #BASO 0.06 TH/CMM L=0.00 H=0.20 MANUAL DIFF NOT IND N/A UA ROUTINE C&S IF IND - Collect Date/Time: 05/17/2016 20:25 Test Name Code Test Result Test Units Test Ref Range COLOR YELLOW N/A NL: YELLOW APPEARANCE CLEAR N/A NL: CLEAR SPEC GRAV 1.010 N/A NL: 1.002 - 1.022 pH 5.5 N/A NL: 5 - 9 PROTEIN NEGATIVE N/A NL: NEGATIVE mg/dl GLUCOSE NEGATIVE N/A NL: NEGATIVE mg/dl KETONE NEGATIVE N/A NL: NEGATIVE mg/dl BILIRUBIN NEGATIVE N/A NL: NEGATIVE BLOOD NEGATIVE N/A NL: NEGATIVE NITRITE NEGATIVE N/A NL: NEGATIVE LEUK SCREEN NEGATIVE N/A NL: NEGATIVE MICRO INDICATED? NOT INDICATED N/A TROPONIN-I ADV - Collect Date/Time: 05/17/2016 19:25 Test Name Code Test Result Test Units [place] [address]-5 <0.04 ng/mL L=0.04 H= 0.40 Function Status Unknown or Not Available. History of Immunizations Unknown or Not Available. Plan of Treatment Unknown or Not Available. Social History Smoking Status Code Start Date End Date Never smoker [id number] Vital Signs Unknown or Not Available. Function Status Unknown or Not Available. Goals Unknown or Not Available. ASSESSMENTS Unknown or Not Available. Health Concerns Section Unknown or Not Available.
--- OUTSIDE RECORDS SUMMARY | 2016-12-20 09:57 | XMS REPORT ---
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 Name Role Phone Rylee Palacios PCP Rylee [...] TAKE 1 CAPSULE BY MOUTH EVERY DAY Name Start Date Expiration Date SIG Comments [...] 1 TABLET BY MOUTH EVERY DAY Multivital [id number] oral tablet 08/06/2012 12/14/2012 TAKE 1 TABLET [...] capsule by oral route every 4 hours White 10-325 mg oral tablet take 1 tablet [...] SC/IM Reviewed 07/11/2011 12:00 AM Toradol 15 Mg,[facility]#[id number]~Ron Reviewed 02/23/2016 12:00 AM COMPLETE CBC W/AUTO DIFF WBC Reviewed 02/23/2016 12:00 AM COMPREHEN METABOLIC PANEL Reviewed 02/23/2016 12:00 AM URNLS DIP STICK/TABLET RGNT AUTO W/O MICROSCOPY Reviewed 07/24/2011 12:00 AM PROTHROMBIN TIME Reviewed 04/11/2016 12:00 AM ELECTROCARDIOGRAM COMPLETE Reviewed 04/05/2016 12:00 AM CHEST X-RAY 2VW FRONTAL&LATL Reviewed 04/21/2016 12:00 AM THERAPEUTIC PROPHYLACTIC/DX INJECTION SUBQ/IM Reviewed 04/21/2016 12:00 AM Decadron 8mg Injection, [facility] Medicare Reviewed 06/06/2016 12:00 AM EXTREMITY STUDY [...] MORE Reviewed 04/12/2009 12:00 AM Toradol 30 Mg,[facility]#[id number] Reviewed 04/12/2009 12:00 AM Phenergan 25 Mg [...] Reviewed 06/16/2010 12:00 AM Kenalog 40 mg [id number] IBRAHIMA Reviewed 08/02/2010 12:00 AM THER/PROPH/DIAG INJ SC/IM Reviewed 08/02/2010 12:00 AM Depo-Medrol 120 Mg Im IBRAHIMA Reviewed 10/20/2010 12:00 AM Phenergan 25 Mg Im [facility] [id number] (Physiatry) Reviewed 10/20/2010 12:00 AM Toradol, 60mg [facility]#[id number] Reviewed 10/20/2010 12:00 AM THER/PROPH/DIAG INJ SC/IM Reviewed 11/04/2010 12:00 AM THER/PROPH/DIAG INJ SC/IM Reviewed 11/04/2010 12:00 AM Stadol 1mg Reviewed 11/04/2010 12:00 AM Vistaril 25 Mg Im [facility]# [id number] Reviewed 12/05/2010 12:00 AM COMPLETE CBC W/AUTO [...] secsINR POCT 5.0 CALLED TO/BY FREDY HODGE [id number] @ 0850 08/14/2011 8:20 AM PROTIME POCT [...] 10:30AM Low Back Pain Jun 16 2010 12:49PM Rhinitis, Allergic Aug 02 2010 [...] May 15 2011 9:02AM Essential Hypertension Feb 9 2011 2:49PM Hyperlipidemia Feb 9 2011 2:49PM Gastroesophageal Reflux Feb 9 2011 2:49PM Anemia Feb 9 2011 2:49PM Asthma Feb 9 2011 2:49PM Edema Feb 9 2011 2:49PM Deep Vein Thrombosis Feb 9 2011 2:49PM Pulmonary Embolism Feb 9 2011 2:49PM Deep Vein Thrombosis Feb 13 2011 8:48AM Essential Hypertension Feb 15 2011 9:00AM Hyperlipidemia Feb 15 2011 9:00AM Gastroesophageal Reflux Feb 15 2011 9:00AM Anemia Feb 15 2011 9:00AM Deep Vein Thrombosis Feb 15 2011 9:00AM Pulmonary Embolism Feb 15 2011 9:00AM Asthma Feb 15 2011 9:00AM Edema Feb 15 2011 9:00AM Essential Hypertension Jul 11 [...] 2016 8:21AM Diaphoresis Aug 23 2016 8:21AM Payers Insurance Name Company Name Plan Name Plan Number Policy Number Policy Group Number Start Date [employer] [facility] [id number] N/A Medicare Part B Medicare [place] [id number] Monday, 2006 [employer] [id number] Tuesday, 2014 [employer] Financial Assistance [employer] Financial Shamar 50 PERCENT Thursday, April 23, 2015 History of Encounters Visit Date Visit Type Provider 10/16/2016 Office visit Rylee Palacios MD 09/20/2016 [facility] Lyndon Hill MD 09/07/2016 Office visit Rylee Palacios MD 09/05/2016 Office visit Manny Mckeon DO 08/23/2016 Office visit Rylee Palacios MD 08/09/2016 [facility] Laurita Espino MD 08/08/2016 [facility] Laurita Espino MD 08/08/2016 Office visit Manny Mckeon DO 07/25/2016 Office visit Rylee Palacios MD 06/15/2016 Office visit Fidel Forrest APRN 06/14/2016 [facility] Laurita Espino MD 06/06/2016 Office visit Rylee Palacios MD 06/04/2016 [facility] Laurita Espino MD 05/31/2016 [facility] Laurita Espino MD 05/24/2016 Surgery Manny Mckeon DO 05/17/2016 Hospital Laurita Espino MD 05/11/2016 Hospital Manny Mckeon DO 05/11/2016 Surgery Manny Mckeon DO 04/27/2016 Laboratory Laurita Espino MD 04/21/2016 Office visit COBY DONALDSON 04/04/2016 Office visit Manny Mckeon DO 02/23/2016 Office visit Manny Mckeon DO 09/05/2015 [facility] Laurita Espino MD 09/05/2015 [facility] Laurita Espino MD 01/21/2014 Office visit Manny Mckeon DO 01/05/2014 [facility] Manny Mckeon DO 01/05/2014 [facility] Laurita Espino MD 12/23/2013 Office visit Manny Mckeon DO 01/23/2012 Procedures Abner Lassiter MD 07/24/2011 Office visit Katherine Sutherland MD 07/17/2011 Hospital Anjana Reyes MD 07/16/2011 Hospital Laurita Espino MD 07/16/2011 [facility] [place] Fu[place] MD 07/15/2011 [facility] [place] Fu[place] MD 07/14/2011 Hospital Laurita Espino MD 07/14/2011 [facility] Anjana Trevino DO 07/11/2011 Hospital Laurita Espino MD 07/11/2011 Office visit Katherine Sutherland MD 06/07/2011 Office visit Katherine Sutherland MD 06/01/2011 Office visit Katherine Sutherland MD 05/15/2011 [facility] Laurita Espino MD 05/15/2011 Office visit Mary Wright APRN 03/07/2011 Office visit Katherine Sutherland MD 12/05/2010 Office visit Katherine Sutherland MD 11/04/2010 Office visit Jeanette DONALDSON 10/20/2010 Office visit Mary Wright COUNTER INTELLIGENCE 08/02/2010 Office visit Katherine Sutherland MD 06/16/2010 [...]
--- OUTSIDE RECORDS SUMMARY | 2016-12-20 10:10 | XMS REPORT | CCD ---
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 Active TALWIN 8002 Drug allergy Active PENICILLIN 52256 Drug allergy HIVES, NAUSEA, HIVES Active DARVOCET-N 100 0 Drug allergy Active AMITIZA 064731 Drug allergy Active ULTRAM 001193 Drug allergy Active MEPERIDINE 6754 Drug allergy NAUSEA AND HIVES. Active FLU VACCINE 0 Drug allergy Active IV DYE {Clinical monitoring unavailable} 0 Drug allergy Active CODEINE 2670 Drug allergy NAUSEA, NAUSEA AND HIVES. Active MORPHINE 7052 Drug allergy Active GABAPENTIN 75828 Drug allergy Active PENTAZOCINE 8001 Drug allergy NAUSEA AND HIVES. Active Active Medications Medication Code Dose Units Frequency Route Modification Start Date/Time Aspirin 81MG Oral Tablet, Enteric Coated 900406 81 MILLIGRAMS DAILY ORAL 09/22/2016 11:05 Prescription Detail 81 MILLIGRAMS ORAL DAILY HYDROcodone bitartrate-acetaminophen 5MG-325MG Oral Tablet 949574 1 EACH EVERY 12 HOURS ORAL 09/22/2016 11: 05 Prescription Detail 1 EACH ORAL EVERY 12 HOURS Lisinopril 10MG Oral Tablet 633806 10 MILLIGRAMS DAILY BY MOUTH 09/22/2016 11:05 Prescription Detail 10 MILLIGRAMS BY MOUTH DAILY ProAir HFA 0.09MG/1Actuation Inhalation Suspension 182659 2 PUFF EVERY 4 HOURS INHALATION 09/22/2016 11:05 Prescription Detail 2 PUFF INHALATION EVERY 4 HOURS Stiolto Respimat 2.5MCG-2.5MCG/1Act Inhalation [place] 4669900 2 PUFF DAILY INHALATION 09/22/2016 11:05 Prescription Detail 2 PUFF INHALATION DAILY Albuterol Sulfate 0.083% Inhalation Solution 505401 1 EACH NEEDED INHALATION 05/17/2016 16:37 Prescription Detail 1 EACH INHALATION NEEDED Citalopram 20MG Oral Tablet 669315 20 MILLIGRAMS DAILY ORAL 05/17/2016 16:37 Prescription Detail 20 MILLIGRAMS ORAL DAILY Doc-Q-Lace 100MG Oral Capsule, Liquid Filled 6707593 2 TABLET AT BEDTIME ORAL 05/17/2016 16:37 Prescription Detail 2 TABLET ORAL AT BEDTIME Loratadine 10MG Oral Tablet 862516 10 MILLIGRAMS DAILY ORAL 05/17/2016 16:37 Prescription Detail 10 MILLIGRAMS ORAL DAILY Montelukast Sodium 10MG Oral Tablet 859619 10 MILLIGRAMS DAILY ORAL 05/17/2016 16:37 Prescription Detail 10 MILLIGRAMS ORAL DAILY Omeprazole 40MG Oral Capsule, Delayed Release 851237 40 MILLIGRAMS DAILY ORAL 05/17/2016 16:37 Prescription Detail 40 MILLIGRAMS ORAL DAILY Pravastatin Sodium 80MG Oral Tablet 202428 40 MILLIGRAMS DAILY ORAL 05/17/2016 16:37 Prescription Detail 40 MILLIGRAMS ORAL DAILY Problems Problem Code Start Date Resolved Date Status Syncope and collapse 868799250 09/19/2016 Active Orthostatic hypotension 06591818 09/19/2016 Active EPIGASTRIC ABDOMINAL PAIN 87871 05/11/2016 Resolved NAUSEA AND VOMITING 35330622 05/11/2016 Resolved PULMONARY EMBOLISM 07737074 07/14/2011 05/11/2016 Resolved Post op pain 504029964 05/11/2016 09/19/2016 Resolved Diverticulitis 316851587 05/11/2016 09/19/2016 Resolved PNEUMONIA 486 07/14/2011 05/11/2016 Resolved Procedures Procedure Code Procedure Type Date Resection of Left Large Intestine, Open Approach [id number] ICD-10 PCS 05/11/2016 Release Sigmoid Colon, Open Approach [id number] ICD-10 PCS Release Rectum, Open Approach [id number] ICD-10 PCS 2016 PT THERAPEUTIC EXERCISES [address] 2016 PT GAIT TRAINING/STAIRS EA [address] 05/16 PT THERAPEUTIC EXERCISES [address] 2016 ABDOMEN ACUTE SERIES 5091439 SNOMED CT 05/15/2016 CX CHEST [address] 05/12/2016 BEDSIDE GLUCOSE 17547871 SNOMED CT 05/17/2016 BEDSIDE GLUCOSE 37004349 SNOMED CT 05/17/2016 BEDSIDE GLUCOSE 20597907 SNOMED CT 05/16/2016 BASIC METABOLIC PANEL 797797710 SNOMED CT 05/16/2016 BEDSIDE GLUCOSE 50111657 SNOMED CT 05/16/2016 BEDSIDE GLUCOSE 42396214 SNOMED CT 05/15/2016 BEDSIDE GLUCOSE 67929297 SNOMED CT 05/15/2016 BEDSIDE GLUCOSE 73975378 SNOMED CT 05/15/2016 BEDSIDE GLUCOSE 33250065 SNOMED CT 05/15/2016 BEDSIDE GLUCOSE 57110285 SNOMED CT 05/14/[address] 05/15/[address] 05/15/2016 COMPREHENSIVE METABOLIC PANEL 168245219 SNOMED CT 2016 CBC W/ AUTO DIFF (RFLX MAN DIFF IF IND) 0002523 SNOMED CT 05/15/2016 BEDSIDE GLUCOSE 92960190 SNOMED CT 05/14/2016 BEDSIDE GLUCOSE 51153171 SNOMED CT 05/13/2016 BEDSIDE GLUCOSE 71427022 SNOMED CT 05/13/2016 .BB ABO RH RETYPE 86658061 SNOMED CT 05/13/2016 .BB COMPATIBILITY 831583176 SNOMED CT 05/13/[address] 05/14/[address] 05/14/2016 COMPREHENSIVE METABOLIC PANEL 879923032 SNOMED CT 2016 CBC W/ AUTO DIFF (RFLX MAN DIFF IF IND) 4974317 SNOMED CT 05/14/2016 TYPE AND CROSS 76892173 SNOMED CT 05/13/2016 BEDSIDE GLUCOSE 29306658 SNOMED CT 05/13/2016 BEDSIDE GLUCOSE 93953269 SNOMED CT 05/13/2016 BEDSIDE GLUCOSE 92957335 SNOMED CT 05/13/2016 BEDSIDE GLUCOSE 70760500 SNOMED CT 05/12/2016 BEDSIDE GLUCOSE 83372753 SNOMED CT 05/12/[address] 05/13/[address] 05/13/2016 COMPREHENSIVE METABOLIC PANEL 036606802 SNOMED CT 2016 CBC W/ AUTO DIFF (RFLX MAN DIFF IF IND) 5464446 SNOMED CT 05/13/2016 BEDSIDE GLUCOSE 99117049 SNOMED CT 05/12/2016 BEDSIDE GLUCOSE 04670935 SNOMED CT 05/11/[address] 05/12/[address] 05/12/2016 COMPREHENSIVE METABOLIC PANEL 263886787 SNOMED CT 2016 CBC W/ AUTO DIFF (RFLX MAN DIFF IF IND) 4050759 SNOMED CT 05/12/2016 RENAL FUNCTION PANEL 215139707 SNOMED CT 05/11/2016 CBC W/ AUTO DIFF (RFLX MAN DIFF IF IND) 0049573 SNOMED CT 05/11/2016 PATHOLOGY ORDER 842365098 SNOMED CT 05/11/2016 TYPE AND SCREEN 18331129 SNOMED CT 05/11/2016 PT EVALUATION; LOW 600656842 SNOMED CT 05/12/2016 INCENTIVE SPIROMETRY EA [address] ^CBC W/AUTO DIFF 5959653 SNOMED CT 05/15/2016 ^CBC W/AUTO DIFF 8734540 SNOMED CT 05/14/2016 .BB COMPAT EXM CHARGE ONLY 010983600 SNOMED CT 2016 .BB PRC 223252257 SNOMED CT 05/13/2016 .BB COMPAT EXM CHARGE ONLY 731675255 SNOMED CT 2016 .BB PRC 718898569 SNOMED CT 05/13/2016 ^CBC W/AUTO DIFF 9935856 SNOMED CT 05/13/2016 ^CBC W/ MANUAL DIFF 61351839 SNOMED CT 05/12/2016 ^CBC W/AUTO DIFF 9265505 SNOMED CT 05/11/2016 BAN AERO ECLIPSE TREATMENT 86757302 SNOMED CT 05/17/2016 BAN AERO ECLIPSE TREATMENT 46075446 SNOMED CT 05/16/2016 BAN AERO ECLIPSE TREATMENT 81315447 SNOMED CT 05/16/2016 BAN AERO ECLIPSE TREATMENT 65763357 SNOMED CT 05/16/2016 BAN AERO ECLIPSE TREATMENT 50963119 SNOMED CT 05/15/2016 BAN AERO ECLIPSE TREATMENT 10399274 SNOMED CT 05/15/2016 BAN AERO ECLIPSE TREATMENT 83735425 SNOMED CT 05/14/2016 BAN AERO ECLIPSE TREATMENT 94012283 SNOMED CT 05/14/2016 BAN AERO ECLIPSE TREATMENT 26683849 SNOMED CT 05/14/2016 BAN AERO ECLIPSE TREATMENT 50702581 SNOMED CT 05/14/2016 BAN AERO ECLIPSE TREATMENT 74360284 SNOMED CT 05/13/2016 BAN AERO ECLIPSE TREATMENT 00712049 SNOMED CT 05/13/2016 BAN AERO ECLIPSE TREATMENT 21939046 SNOMED CT 05/13/2016 BAN AERO ECLIPSE TREATMENT 20660448 SNOMED CT 05/13/2016 BAN AERO ECLIPSE TREATMENT 79533901 SNOMED CT 05/12/2016 BAN AERO ECLIPSE TREATMENT 02504906 SNOMED CT 05/12/2016 BAN AERO ECLIPSE TREATMENT 82964388 SNOMED CT 05/12/2016 BAN AERO ECLIPSE TREATMENT 93350241 SNOMED CT 05/12/2016 BAN AERO ECLIPSE TREATMENT 37320870 SNOMED CT 05/11/2016 Results BASIC METABOLIC PANEL - Collect Date/Time: 05/16/2016 08:10 Test Name Code Test Result Test Units Test Ref Range GLUCOSE 2345-7 111 MG/DL L=70 H=100 SODIUM 2951-2 137 MEQ/L L=135 H=148 POTASSIUM 2823-3 4.3 MEQ/L L=3.5 H=5.3 CHLORIDE 2075-0 105 MEQ/L L=96 H=110 CO2 2028-9 24 MEQ/L L=22 H=29 BUN 3094-0 17 MG/DL L=8 H=22 CREATININE 2160-0 0.7 MG/DL L=0.6 H=1.6 CALCIUM 26559-9 8.7 MG/DL L=8.2 H=10.6 AGE [address]1534-8 66 yrs GFR NonAA 00121-2 83 GFR AA 65872-8 101 eGFR 08013-0 >60 N/A eGFR AA* 16867-3 >60 N/A BEDSIDE GLUCOSE - Collect Date/Time: 05/17/2016 11:49 Test Name Code Test Result Test Units Test Ref Range GLUCOSE POCT 107 MG/DL L=70 H=100 BEDSIDE GLUCOSE - Collect Date/Time: 05/17/2016 07:08 Test Name Code Test Result Test Units Test Ref Range GLUCOSE POCT 121 MG/DL L=70 H=100 BEDSIDE GLUCOSE - Collect Date/Time: 05/16/2016 20:35 Test Name Code Test Result Test Units Test Ref Range GLUCOSE POCT 130 MG/DL L=70 H=100 BEDSIDE GLUCOSE - Collect Date/Time: 05/16/2016 05:22 Test Name Code Test Result Test Units Test Ref Range GLUCOSE POCT 112 MG/DL L=70 H=100 BEDSIDE GLUCOSE - Collect Date/Time: 05/15/2016 23:49 Test Name Code Test Result Test Units Test Ref Range GLUCOSE POCT 200 MG/DL L=70 H=100 BEDSIDE GLUCOSE - Collect Date/Time: 05/15/2016 17:29 Test Name Code Test Result Test Units Test Ref Range GLUCOSE POCT 120 MG/DL L=70 H=100 BEDSIDE GLUCOSE - Collect Date/Time: 05/15/2016 11:51 Test Name Code Test Result Test Units Test Ref Range GLUCOSE POCT 118 MG/DL L=70 H=100 BEDSIDE GLUCOSE - Collect Date/Time: 05/15/2016 05:17 Test Name Code Test Result Test Units Test Ref Range GLUCOSE POCT 116 MG/DL L=70 H=100 BEDSIDE GLUCOSE - Collect Date/Time: 05/14/2016 23:23 Test Name Code Test Result Test Units Test Ref Range GLUCOSE POCT 131 MG/DL L=70 H=100 BEDSIDE GLUCOSE - Collect Date/Time: 05/14/2016 05:48 Test Name Code Test Result Test Units Test Ref Range GLUCOSE POCT 108 MG/DL L=70 H=100 BEDSIDE GLUCOSE - Collect Date/Time: 05/13/2016 23:46 Test Name Code Test Result Test Units Test Ref Range GLUCOSE POCT 154 MG/DL L=70 H=100 BEDSIDE GLUCOSE - Collect Date/Time: 05/13/2016 18:07 Test Name Code Test Result Test Units Test Ref Range GLUCOSE POCT 108 MG/DL L=70 H=100 BEDSIDE GLUCOSE - Collect Date/Time: 05/13/2016 12:13 Test Name Code Test Result Test Units Test Ref Range GLUCOSE POCT 106 MG/DL L=70 H=100 BEDSIDE GLUCOSE - Collect Date/Time: 05/13/2016 05:22 Test Name Code Test Result Test Units Test Ref Range GLUCOSE POCT 118 MG/DL L=70 H=100 BEDSIDE GLUCOSE - Collect Date/Time: 05/13/2016 00:15 Test Name Code Test Result Test Units Test Ref Range GLUCOSE POCT 157 MG/DL L=70 H=100 BEDSIDE GLUCOSE - Collect Date/Time: 05/12/2016 17:32 Test Name Code Test Result Test Units Test Ref Range GLUCOSE POCT 149 MG/DL L=70 H=100 BEDSIDE GLUCOSE - Collect Date/Time: 05/12/2016 12:01 Test Name Code Test Result Test Units Test Ref Range GLUCOSE POCT 136 MG/DL L=70 H=100 BEDSIDE GLUCOSE - Collect Date/Time: 05/12/2016 05:17 Test Name Code Test Result Test Units Test Ref Range GLUCOSE POCT 161 MG/DL L=70 H=100 BEDSIDE GLUCOSE - Collect Date/Time: 05/11/2016 23:12 Test Name Code Test Result Test Units Test Ref Range GLUCOSE POCT 149 MG/DL L=70 H=100 COMPREHENSIVE METABOLIC PANEL - Collect Date/Time: 05/15/2016 05:15 Test Name Code Test Result Test Units Test Ref Range GLUCOSE 2345-7 110 MG/DL L=70 H=100 SODIUM 2951-2 137 MEQ/L L=135 H=148 POTASSIUM 2823-3 4.4 MEQ/L L=3.5 H=5.3 CHLORIDE 2075-0 105 MEQ/L L=96 H=110 CO2 2028-9 23 MEQ/L L=22 H=29 BUN 3094-0 15 MG/DL L=8 H=22 CREATININE 2160-0 0.8 MG/DL L=0.6 H=1.6 SGOT/AST 1920-8 10 IU/L L=10 H=40 SGPT/ALT 1742-6 13 IU/L L=8 H=54 ALK PHOS 6768-6 55 IU/L L=35 H=115 TOTAL PROTEIN 2885-2 5.0 G/DL L=5.5 H=8.5 ALBUMIN 1751-7 2.6 G/DL L=3.1 H=5.4 TOTAL BILI 1975-2 0.7 MG/DL L=0.0 H=1.5 CALCIUM 13690-4 8.4 MG/DL L=8.2 H=10.6 AGE [address]-2 66 yrs GFR NonAA 05298-6 72 GFR AA 40444-2 87 eGFR 09539-5 >60 N/A eGFR AA* 57077-7 >60 N/A COMPREHENSIVE METABOLIC PANEL - Collect Date/Time: 05/14/2016 05:45 Test Name Code Test Result Test Units Test Ref Range GLUCOSE 2345-7 104 MG/DL L=70 H=100 SODIUM 2951-2 139 MEQ/L L=135 H=148 POTASSIUM 2823-3 3.8 MEQ/L L=3.5 H=5.3 CHLORIDE 2075-0 107 MEQ/L L=96 H=110 CO2 2028-9 23 MEQ/L L=22 H=29 BUN 3094-0 12 MG/DL L=8 H=22 CREATININE 2160-0 0.7 MG/DL L=0.6 H=1.6 SGOT/AST 1920-8 12 IU/L L=10 H=40 SGPT/ALT 1742-6 17 IU/L L=8 H=54 ALK PHOS 6768-6 49 IU/L L=35 H=115 TOTAL PROTEIN 2885-2 4.9 G/DL L=5.5 H=8.5 ALBUMIN 1751-7 2.6 G/DL L=3.1 H=5.4 TOTAL BILI 1975-2 1.1 MG/DL L=0.0 H=1.5 CALCIUM 23291-2 8.2 MG/DL L=8.2 H=10.6 AGE 70478-1 66 yrs GFR NonAA 26369-7 83 GFR AA 47324-6 101 eGFR 53410-6 >60 N/A eGFR AA* 08940-3 >60 N/A COMPREHENSIVE METABOLIC PANEL - Collect Date/Time: 05/13/2016 05:10 Test Name Code Test Result Test Units Test Ref Range GLUCOSE 2345-7 113 MG/DL L=70 H=100 SODIUM 2951-2 137 MEQ/L L=135 H=148 POTASSIUM 2823-3 3.9 MEQ/L L=3.5 H=5.3 CHLORIDE 2075-0 112 MEQ/L L=96 H=110 CO2 2028-9 19 MEQ/L L=22 H=29 BUN 3094-0 14 MG/DL L=8 H=22 CREATININE 2160-0 0.7 MG/DL L=0.6 H=1.6 SGOT/AST 1920-8 15 IU/L L=10 H=40 SGPT/ALT 1742-6 17 IU/L L=8 H=54 ALK PHOS 6768-6 42 IU/L L=35 H=115 TOTAL PROTEIN 2885-2 4.2 G/DL L=5.5 H=8.5 ALBUMIN 1751-7 2.4 G/DL L=3.1 H=5.4 TOTAL BILI 1975-2 0.9 MG/DL L=0.0 H=1.5 CALCIUM 56874-3 7.6 MG/DL L=8.2 H=10.6 AGE 13204-6 66 yrs GFR NonAA 98455-2 83 GFR AA 82703-1 101 eGFR 88824-8 >60 N/A eGFR AA* 32673-8 >60 N/A COMPREHENSIVE METABOLIC PANEL - Collect Date/Time: 05/12/2016 05:15 Test Name Code Test Result Test Units Test Ref Range GLUCOSE 2345-7 149 MG/DL L=70 H=100 SODIUM 2951-2 140 MEQ/L L=135 H=148 POTASSIUM 2823-3 4.2 MEQ/L L=3.5 H=5.3 CHLORIDE 2075-0 114 MEQ/L L=96 H=110 CO2 2028-9 16 MEQ/L L=22 H=29 BUN 3094-0 14 MG/DL L=8 H=22 CREATININE 2160-0 0.9 MG/DL L=0.6 H=1.6 SGOT/AST 1920-8 18 IU/L L=10 H=40 SGPT/ALT 1742-6 20 IU/L L=8 H=54 ALK PHOS 6768-6 39 IU/L L=35 H=115 TOTAL PROTEIN 2885-2 4.4 G/DL L=5.5 H=8.5 ALBUMIN 1751-7 2.7 G/DL L=3.1 H=5.4 TOTAL BILI 1975-2 1.4 MG/DL L=0.0 H=1.5 CALCIUM 85095-9 7.2 MG/DL L=8.2 H=10.6 AGE [address]-4 66 yrs GFR NonAA 00854-1 62 GFR AA 12022-3 75 eGFR 05330-5 >60 N/A eGFR AA* 41321-0 >60 N/A MAGNESIUM - Collect Date/Time: 05/15/2016 05:15 Test Name Code Test Result Test Units Test Ref Range MAGNESIUM 52058-7 2.1 MG/DL L=1.7 H=2.8 MAGNESIUM - Collect Date/Time: 05/14/2016 05:45 Test Name Code Test Result Test Units Test Ref Range MAGNESIUM 79367-9 1.9 MG/DL L=1.7 H=2.8 MAGNESIUM - Collect Date/Time: 05/13/2016 05:10 Test Name Code Test Result Test Units Test Ref Range MAGNESIUM 70697-5 2.1 MG/DL L=1.7 H=2.8 MAGNESIUM - Collect Date/Time: 05/12/2016 05:15 Test Name Code Test Result Test Units Test Ref Range MAGNESIUM 70998-5 1.9 MG/DL L=1.7 H=2.8 PHOSPHORUS - Collect Date/Time: 05/15/2016 05:15 Test Name Code Test Result Test Units Test Ref Range PHOSPHORUS 2777-1 4.5 MG/DL L=2.5 H=4.5 PHOSPHORUS - Collect Date/Time: 05/14/2016 05:45 Test Name Code Test Result Test Units Test Ref Range PHOSPHORUS 2777-1 4.0 MG/DL L=2.5 H=4.5 PHOSPHORUS - Collect Date/Time: 05/13/2016 05:10 Test Name Code Test Result Test Units Test Ref Range PHOSPHORUS 2777-1 2.3 MG/DL L=2.5 H=4.5 PHOSPHORUS - Collect Date/Time: 05/12/2016 05:15 Test Name Code Test Result Test Units Test Ref Range PHOSPHORUS 2777-1 3.3 MG/DL L=2.5 H=4.5 RENAL FUNCTION PANEL - Collect Date/Time: 05/11/2016 15:40 Test Name Code Test Result Test Units Test Ref Range GLUCOSE 2345-7 162 MG/DL L=70 H=100 SODIUM 2951-2 138 MEQ/L L=135 H=148 POTASSIUM 2823-3 4.4 MEQ/L L=3.5 H=5.3 CHLORIDE 2075-0 113 MEQ/L L=96 H=110 CO2 2028-9 17 MEQ/L L=22 H=29 BUN 3094-0 12 MG/DL L=8 H=22 CREATININE 2160-0 0.8 MG/DL L=0.6 H=1.6 ALBUMIN 1751-7 2.9 G/DL L=3.1 H=5.4 CALCIUM 98602-6 7.6 MG/DL L=8.2 H=10.6 PHOSPHORUS 2777-1 3.9 MG/DL L=2.5 H=4.5 AGE [address]9429-4 66 yrs GFR NonAA 76610-3 72 [place]FR AA 54837-4 87 eGFR 15906-6 >60 N/A eGFR AA* 14335-9 >60 N/A CBC W/ AUTO DIFF (RFLX MAN DIFF IF IND) - Collect Date/Time: 05/15/2016 05:15 Test Name Code Test Result Test Units Test Ref Range WBC 21544-7 7.1 TH/CMM L=4.5 H=10.8 RBC 789-8 3.49 ML/CMM L=4.20 H=5.40 HGB 718-7 10.5 G/DL L=12.0 H=16.0 HCT 4544-3 32.5 % L=37.0 H=47.0 MCV 10320-3 93 FL L=81 H=99 MCH 11780-0 30.1 PG L=27.0 H=33.0 MCHC 40073-2 32.3 G/DL L=31.0 H=36[place] [address]-4 50 FL L=36 H=50 [place] [address]-3 14.7 % L=0.0 H=14.8 MPV 00663-1 11.0 FL L=9.3 H=12.5 PLT 777-3 190 TH/CMM L=130 H=440 NRBC# 28053-2 0.00 TH/CMM L=0.00 H=0.00 NRBC% 64340-1 0.0 /100WBC L=0.0 H=2.0 %NEUT 47631-4 63.3 % %LYMP 19557-7 22.4 % %MONO 48951-2 9.9 % %EOS 43464-8 3.1 % %BASO 53820-0 0.6 % #NEUT 86882-2 4.52 TH/CMM L=2.10 H=8.20 #LYMP 35936-4 1.60 TH/CMM L=0.90 H=5.20 #MONO 29938-6 0.71 TH/CMM L=0.16 H=1.00 #EOS 16528-8 0.22 TH/CMM L=0.00 H=0.80 #BASO 28038-1 0.04 TH/CMM L=0.00 H=0.20 MANUAL DIFF 14319-3 NOT IND N/A CBC W/ AUTO DIFF (RFLX MAN DIFF IF IND) - Collect Date/Time: 05/14/2016 05:45 Test Name Code Test Result Test Units Test Ref Range WBC 13232-1 9.5 TH/CMM L=4.5 H=10.8 RBC 789-8 3.38 ML/CMM L=4.20 H=5.40 HGB 718-7 10.2 G/DL L=12.0 H=16.0 HCT 4544-3 31.0 % L=37.0 H=47.0 MCV 99805-4 92 FL L=81 H=99 MCH 98588-2 30.2 PG L=27.0 H=33.0 MCHC 26840-7 32.9 G/DL L=31.0 H=36[place] [address]-2 50 FL L=36 H=50 [place] 00[address]-2 14.9 % L=0.0 H=14.8 MPV 66588-8 11.3 FL L=9.3 H=12.5 PLT 777-3 158 TH/CMM L=130 H=440 NRBC# 60258-3 0.00 TH/CMM L=0.00 H=0.00 NRBC% 98665-9 0.0 /100WBC L=0.0 H=2.0 %NEUT 70638-0 73.5 % %LYMP 94504-4 18.0 % %MONO 67665-0 6.3 % %EOS 10420-6 1.4 % %BASO 98721-5 0.3 % #NEUT 92865-8 7.01 TH/CMM L=2.10 H=8.20 #LYMP 60860-7 1.72 TH/CMM L=0.90 H=5.20 #MONO 33535-3 0.60 TH/CMM L=0.16 H=1.00 #EOS 99352-7 0.13 TH/CMM L=0.00 H=0.80 #BASO 74766-3 0.03 TH/CMM L=0.00 H=0.20 MANUAL DIFF 35630-7 NOT IND N/A CBC W/ AUTO DIFF (RFLX MAN DIFF IF IND) - Collect Date/Time: 05/13/2016 05:10 Test Name Code Test Result Test Units Test Ref Range WBC 51126-5 8.5 TH/CMM L=4.5 H=10.8 RBC 789-8 2.42 ML/CMM L=4.20 H=5.40 HGB 718-7 7.5 G/DL L=12.0 H=16.0 HCT 4544-3 23.1 % L=37.0 H=47.0 MCV 40604-1 96 FL L=81 H=99 MCH 26905-0 31.0 PG L=27.0 H=33.0 MCHC 43474-5 32.5 G/DL L=31.0 H=36[place] [address]-0 50 FL L=36 H=50 [place] [address]-3 14.2 % L=0.0 H=14.8 MPV 68178-3 11.3 FL L=9.3 H=12.5 PLT 777-3 134 TH/CMM L=130 H=440 NRBC# 77267-5 0.00 TH/CMM L=0.00 H=0.00 NRBC% 50828-3 0.0 /100WBC L=0.0 H=2.0 %NEUT 25596-7 78.7 % %LYMP 16037-1 13.4 % %MONO 36394-6 6.8 % %EOS 16963-1 0.2 % %BASO 62039-5 0.1 % #NEUT 18797-1 6.71 TH/CMM L=2.10 H=8.20 #LYMP 58769-3 1.14 TH/CMM L=0.90 H=5.20 #MONO 19176-8 0.58 TH/CMM L=0.16 H=1.00 #EOS 50711-1 0.02 TH/CMM L=0.00 H=0.80 #BASO 05920-4 0.01 TH/CMM L=0.00 H=0.20 MANUAL DIFF 38147-9 NOT IND N/A CBC W/ AUTO DIFF (RFLX MAN DIFF IF IND) - Collect Date/Time: 05/12/2016 05:15 Test Name Code Test Result Test Units Test Ref Range WBC 96363-0 10.8 TH/CMM L=4.5 H=10.8 RBC 789-8 2.98 ML/CMM L=4.20 H=5.40 HGB 718-7 9.2 G/DL L=12.0 H=16.0 HCT 4544-3 28.7 % L=37.0 H=47.0 MCV 30624-6 96 FL L=81 H=99 MCH 80850-4 30.9 PG L=27.0 H=33.0 MCHC 55363-6 32.1 G/DL L=31.0 H=36[place]0 [place] [address]-8 49 FL L=36 H=50 [place] [address]-0 14.0 % L=0.0 H=14.8 MPV 76277-6 11.5 FL L=9.3 H=12.5 PLT 777-3 159 TH/CMM L=130 H=440 NRBC# 03702-7 0.00 TH/CMM L=0.00 H=0.00 NRBC% 34220-6 0.0 /100WBC L=0.0 H=2.0 %NEUT 97812-8 83.7 % %LYMP 48559-5 8.2 % %MONO 96931-0 7.7 % %EOS 06090-8 0.0 % %BASO 36543-7 0.1 % #NEUT 72074-4 9.00 TH/CMM L=2.10 H=8.20 #LYMP 08238-6 0.88 TH/CMM L=0.90 H=5.20 #MONO 44960-6 0.83 TH/CMM L=0.16 H=1.00 #EOS 27888-3 0.00 TH/CMM L=0.00 H=0.80 #BASO 13321-1 0.01 TH/CMM L=0.00 H=0.20 SEGS 57280-0 56 % BANDS 67328-5 20 % LYMPHS 00122-4 14 % MONOS 36174-8 9 % METAS 64001-7 1 % MANUAL DIFF 49149-9 SEE BELOW N/A CBC W/ AUTO DIFF (RFLX MAN DIFF IF IND) - Collect Date/Time: 05/11/2016 15:40 Test Name Code Test Result Test Units Test Ref Range WBC 05590-8 7.4 TH/CMM L=4.5 H=10.8 RBC 789-8 3.78 ML/CMM L=4.20 H=5.40 HGB 718-7 11.7 G/DL L=12.0 H=16.0 HCT 4544-3 36.3 % L=37.0 H=47.0 MCV 38789-2 96 FL L=81 H=99 MCH 25878-8 31.0 PG L=27.0 H=33.0 MCHC 22460-2 32.2 G/DL L=31.0 H=36[place] [address]-1 49 FL L=36 H=50 [place] [address]-5 13.9 % L=0.0 H=14.8 MPV 31234-0 10.9 FL L=9.3 H=12.5 PLT 777-3 234 TH/CMM L=130 H=440 NRBC# 99321-3 0.00 TH/CMM L=0.00 H=0.00 NRBC% 79820-0 0.0 /100WBC L=0.0 H=2.0 %NEUT 09380-0 77.4 % %LYMP 73896-3 15.1 % %MONO 75312-9 7.0 % %EOS 68430-1 0.1 % %BASO 97818-1 0.3 % #NEUT 61269-5 5.73 TH/CMM L=2.10 H=8.20 #LYMP 80191-9 1.12 TH/CMM L=0.90 H=5.20 #MONO 43885-8 0.52 TH/CMM L=0.16 H=1.00 #EOS 86221-3 0.01 TH/CMM L=0.00 H=0.80 #BASO 03588-4 0.02 TH/CMM L=0.00 H=0.20 MANUAL DIFF 52386-5 NOT IND N/A .BB ABO RH RETYPE - Collect Date/Time: 05/13/2016 12:44 Test Name Code Test Result Test Units Test Ref Range ABO/Rh Recheck A Negative N/A .BB COMPATIBILITY - Collect Date/Time: 05/13/2016 12:42 Test Name Code Test Result Test Units Test Ref Range Cross Match Result Compatible N/A Unit Blood Type A Neg N/A Unit Number [id number] RBC -1 LR N/A Status Information Ready N/A Product Identification Red Blood Cells N/A TYPE AND CROSS - Collect Date/Time: 05/13/2016 13:00 Test Name Code Test Result Test Units Test Ref Range Cross Match Result 41550-2 Compatible N/A Unit Blood Type 27643-9 A Neg N/A Unit Number 85492-4 [id number] RBC -1 LR N/A Status Information 90465-6 Ready N/A Product Identification 18368-2 Red Blood Cells N/A TYPE AND SCREEN - Collect Date/Time: 05/11/2016 08:35 Test Name Code Test Result Test Units Test Ref Range ABO/Rh Type 895-3 A Negative N/A Antibody Screen-Gel 895-3 Negative N/A Function Status Unknown or Not Available. History of Immunizations Unknown or Not Available. Plan of Treatment Unknown or Not Available. Social History Smoking Status Code Start Date End Date Never smoker [id number] Vital Signs Vital Sign Value Unit Date/Time Recent/Initial? Weight Measured 205 [lb_av] 05/10/2016 15:56 Initial VS Height 67.5 [in_i] 05/10/2016 15:56 Initial VS BMI (Body Mass Index) 31.63 kg/m2 05/10/2016 15:56 Initial VS BSA (Body Surface Area) 2.1 m2 05/10/2016 15:56 Initial VS BP Systolic 93 mm[Hg] 05/11/2016 15:12 Initial VS BP Diastolic 55 mm[Hg] 05/11/2016 15:12 Initial VS Respiratory Rate 31 /min 05/11/2016 15:12 Initial VS Heart Rate 91 /min 05/11/2016 15:12 Initial VS O2 % BldC Oximetry 98 % 05/11/2016 15:12 Initial VS Body Temperature 97 [degF] 05/11/2016 16:20 Initial VS Weight Measured 204 [lb_av] 05/16/2016 14:41 Most Recent VS Height 67.5 [in_i] 05/16/2016 14:41 Most Recent VS BMI (Body Mass Index) 31.48 kg/m2 05/16/2016 14:41 Most Recent VS BSA (Body Surface Area) 2.1 m2 05/16/2016 14:41 Most Recent VS BP Systolic 126 mm[Hg] 05/17/2016 10:20 Most Recent VS BP Diastolic 64 mm[Hg] 05/17/2016 10:20 Most Recent VS Respiratory Rate 20 /min 05/17/2016 10:20 Most Recent VS Heart Rate 65 /min 05/17/2016 10:20 Most Recent VS O2 % BldC Oximetry 96 % 05/17/2016 10:20 Most Recent VS Body Temperature 95.9 [degF] 05/17/2016 10:20 Most Recent VS Function Status Unknown or Not Available. Goals Unknown or Not Available. ASSESSMENTS Unknown or Not Available. Health Concerns Section Unknown or Not Available.
--- OUTSIDE RECORDS SUMMARY | 2016-12-20 10:17 | XMS REPORT ---
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 11/13/2016 12:00 AM GTT FIRST 3 SPECIMENS 11/13/2016 12:00 AM seizures and migraines Medications Active [...] TAKE 1 CAPSULE BY MOUTH EVERY DAY Nebulizer and Kit 10/27/2016 DX: J44.9 famotidine 40 mg oral tablet 11/13/2016 12/13/2016 take 1 tablet (40 mg) by oral route every 12 hours for 30 days Maalox Advanced 200-200-20 mg/5 mL oral suspension 11/13/2016 03/13/2017 take 10 milliliters by oral route between meals and at bedtime for 30 days albuterol sulfate 2.5 mg /3 mL (0.083 %) inhalation solution for nebulization 11/13/2016 05/12/2017 one amp in nebulizer machine up to every four hours as neede Milliliter(s) INH QID as needed for 30 days Name Start Date Expiration Date SIG Comments [...] 1 TABLET BY MOUTH EVERY DAY Multivital [id number] oral tablet 08/06/2012 12/14/2012 TAKE 1 TABLET [...] capsule by oral route every 4 hours [place] 10-325 mg oral tablet take 1 tablet [...] HC BMI BSA BMI Percentile O2 Sat(%) 11/13/2016 2:57:00 PM 138 mmHg 98 mmHg 84 bpm 18 rpm 98.9 F 208.125 lbs 67 in 32.60 kg/m2 2.11 m2 97 % 10/16/2016 3:39:00 PM 120 mmHg 78 mmHg 82 bpm 16 rpm 98.9 F 207.375 lbs 67 in 32.4792 kg/m 2.1087 m 95 % 09/07/2016 2:40:00 PM 150 mmHg 89 mmHg 73 bpm 18 rpm 99.6 F 199.125 lbs 67 in 31.19 kg/m2 2.07 m2 95 % 09/05/2016 9:46:00 AM 157 mmHg 79 mmHg 59 bpm 20 rpm 97.2 F 201.5 lbs 67 in 31.559 kg/m 2.0786 m 08/23/2016 8:18:00 AM 152 mmHg 82 mmHg 62 bpm 18 rpm 98.7 F 202.375 lbs 67 in 31.70 kg/m2 2.08 m2 98 % 08/08/2016 9:15:00 AM 125 mmHg 98 mmHg 65 bpm 20 rpm 96.8 F 204 lbs 67 in 31.9506 kg/m 2.0915 m 07/25/2016 8:39:00 AM 168 mmHg 86 mmHg 62 bpm 18 rpm 97.8 F 202.25 lbs 67 in 31.68 kg/m2 2.08 m2 98 % 06/15/2016 1:48:00 PM 110 mmHg 70 mmHg 106 bpm 22 rpm 98.7 F 196 lbs 97 % 06/06/2016 2:58:00 PM 118 mmHg 74 mmHg 102 bpm 16 rpm 98.7 F 197.25 lbs 67 in 30.8934 kg/m 2.06 m2 98 % 05/24/2016 8:56:00 AM 118 mmHg 83 mmHg 99 bpm 20 rpm 96.9 F 195 lbs 67 in 30.54 kg/m2 2.0448 m 04/21/2016 5:16:00 PM 142 mmHg 80 mmHg 98 bpm 99.5 F 212 lbs 67.5 in 32.7135 kg/m 2.14 m2 95 % 04/04/2016 3:02:00 PM 104 mmHg 80 mmHg 89 bpm 20 rpm 97.4 F 209.5 lbs 67.5 in 32.33 kg/m2 2.1274 m 02/23/2016 9:04:00 AM 161 mmHg 93 mmHg 15 bpm 20 rpm 97.1 F 210.5 lbs 70.5 in 29.7764 kg/m 2.18 m2 01/21/2014 8:50:00 AM 118 mmHg 60 mmHg 70 bpm 22 rpm 97.8 F 233 lbs 66 in 37.61 kg/m2 2.2184 m 12/23/2013 10:41:00 AM 147 mmHg 87 mmHg 65 bpm 22 rpm 97.2 F 235 lbs 66 in 37.9296 kg/m 2.23 m2 07/24/2011 2:36:00 PM 124 mmHg 90 mmHg [...] F 231.125 lbs 66 in 37.3042 kg/m 2.21 m2 94 % 05/15/2011 9:00:00 AM 142 mmHg 78 mmHg 68 bpm 20 rpm 96.6 F 253.125 lbs 66 in 40.86 kg/m2 2.3123 m 03/07/2011 9:15:00 AM 142 mmHg 100 mmHg 75 bpm 20 rpm 96.9 F 245.5 lbs 96 % 12/05/2010 9:21:00 AM 130 mmHg 72 mmHg 58 bpm 22 rpm 96 F 236 lbs 66 in 38.09 kg/m2 2.2327 m 95 % 11/04/2010 3:06:00 PM 130 mmHg [...] SC/IM Reviewed 07/11/2011 12:00 AM Toradol 15 Mg,[facility]#[id number]~Ron Reviewed 02/23/2016 12:00 AM COMPLETE CBC W/AUTO DIFF WBC Reviewed 02/23/2016 12:00 AM COMPREHEN METABOLIC PANEL Reviewed 02/23/2016 12:00 AM URNLS DIP STICK/TABLET RGNT AUTO W/O MICROSCOPY Reviewed 07/24/2011 12:00 AM PROTHROMBIN TIME Reviewed 04/11/2016 12:00 AM ELECTROCARDIOGRAM COMPLETE Reviewed 04/05/2016 12:00 AM CHEST X-RAY 2VW FRONTAL&LATL Reviewed 04/21/2016 12:00 AM THERAPEUTIC PROPHYLACTIC/DX INJECTION SUBQ/IM Reviewed 04/21/2016 12:00 AM Decadron 8mg Injection, [facility] Medicare Reviewed 06/06/2016 12:00 AM EXTREMITY STUDY [...] MORE Reviewed 04/12/2009 12:00 AM Toradol 30 Mg,[facility]#[id number] Reviewed 04/12/2009 12:00 AM Phenergan 25 Mg [...] Reviewed 06/16/2010 12:00 AM Kenalog 40 mg [id number] IBRAHIMA Reviewed 08/02/2010 12:00 AM THER/PROPH/DIAG INJ SC/IM Reviewed 08/02/2010 12:00 AM Depo-Medrol 120 Mg Im IBRAHIMA Reviewed 10/20/2010 12:00 AM Phenergan 25 Mg Im [facility] [id number] (Physiatry) Reviewed 10/20/2010 12:00 AM Toradol, 60mg [facility]#[id number] Reviewed 10/20/2010 12:00 AM THER/PROPH/DIAG INJ SC/IM Reviewed 11/04/2010 12:00 AM THER/PROPH/DIAG INJ SC/IM Reviewed 11/04/2010 12:00 AM Stadol 1mg Reviewed 11/04/2010 12:00 AM Vistaril 25 Mg Im [facility]# [id number] Reviewed 12/05/2010 12:00 AM COMPLETE CBC W/AUTO [...] secsINR POCT 5.0 CALLED TO/BY FREDY HODGE [id number] @ 0850 08/14/2011 8:20 AM PROTIME POCT [...] Gastroesophageal Reflux Feb 2011 2:49PM Anemia Feb 2011 2:49PM Asthma Feb 2011 2:49PM Edema Feb 9 2011 2:49PM Deep Vein Thrombosis Feb 2011 2:49PM Pulmonary Embolism Feb 2011 2:49PM Deep Vein Thrombosis b 2011 8:48AM Essential Hypertension Feb 2011 9:00AM Hyperlipidemia b 15 2011 9:00AM Gastroesophageal Reflux Feb 2011 9:00AM Anemia Feb 15 2011 9:00AM Deep Vein Thrombosis Feb 15 2011 9:00AM Pulmonary Embolism b 15 2011 9:00AM Asthma Feb 15 2011 [...] 3:43PM Gait difficulty Oct 16 2016 3:43PM Acid Reflux Nov 13 2016 3:00PM Mild persistent asthma with acute exacerbation Nov 13 2016 3:00PM Polyuria Nov 13 2016 3:00PM Abnormal fasting glucose Nov 13 2016 3:00PM Payers Insurance Name Company Name Plan Name Plan Number Policy Number Policy Group Number Start Date [employer] [facility] [id number] N/A Medicare Part B Medicare Of [place] [id number] Monday, 2006 [employer] [place] [id number] Tuesday, 2014 [employer] [place] 50 PERCENT Thursday, April 23, 2015 History of Encounters Visit Date Visit Type Provider 11/13/2016 Office visit Rylee Palacios MD 10/16/2016 Office visit Rylee Palacios MD 09/20/2016 [facility] Lyndon Hill MD 09/07/2016 Office visit Rylee Palacios MD 09/05/2016 Office visit Manny Mckeon DO 08/23/2016 Office visit Rylee Palacios MD 08/09/2016 Hospital Laurita Espino MD 08/08/2016 [facility] Laurita Espino MD 08/08/2016 Office visit Manny Mckeon DO 07/25/2016 Office visit Rylee Palacios MD 06/15/2016 Office visit Fidel Forrest EXHAUST WORKER 06/14/2016 Hospital W Quang Espino MD 06/06/2016 Office visit Rylee Palacios MD 06/04/2016 [facility] W Quang Espino MD 05/31/2016 [facility] Laurita Espino MD 05/24/2016 Surgery Manny Bouman DO 05/17/2016 Hospital Laurita Espino MD 05/11/2016 [facility] Manny Bouman DO 05/11/2016 Surgery Manny Bouman DO 04/27/2016 Laboratory Laurita Espino MD 04/21/2016 Office visit COBY DONALDSON 04/04/2016 Office visit Manny Mckeon DO 02/23/2016 Office visit Manny Mckeon DO 09/05/2015 [facility] Laurita Espino MD 09/05/2015 [facility] Laurita Espino MD 01/21/2014 Office visit Manny Bouman DO 01/05/2014 [facility] Manny Boldenuman DO 01/05/2014 [facility] Laurita Espino MD 12/23/2013 Office visit Manny Mckeon DO 01/23/2012 Procedures Abner Lassiter MD 07/24/2011 Office visit Katherine Sutherland MD 07/17/2011 [facility] Anjana Reyes MD 07/16/2011 [facility] Laurita Espino MD 07/16/2011 [facility] [place] Fuentes MD 07/15/2011 [facility] [place] Fuentes MD 07/14/2011 [facility] Laurita Espino MD 07/14/2011 [facility] Anjana Trevino DO 07/11/2011 Hospital Laurita Espino MD 07/11/2011 Office visit Katherine Sutherland MD 06/07/2011 Office visit Katherine Sutherland MD 06/01/2011 Office visit Katherine Sutherland MD 05/15/2011 Hospital Laurita Espino MD 05/15/2011 Office visit Mary Wright EXHAUST WORKER 03/07/2011 Office visit Katherine Sutherland MD 12/05/2010 Office visit Katherine Sutherland MD 11/04/2010 Office visit Jeanette DONALDSON 10/20/2010 Office visit Mary Wright EXHAUST WORKER 08/02/2010 Office visit Katherine Sutherland MD 06/16/2010 [...]
--- NOTE | 2016-12-20 11:35 | ED Headache ---
General Chief Complaint: Head/Cervical Problems Stated Complaint: SEVERE HEADACHE Nursing Triage Note: PT. HAS HAD H/A SINCE SUNDAY. SHE WAS GIVEN ZORVOLEX BY HER PCP BUT STATES IT "MESSES WITH HER HEART" AND DOES NOT TAKE IT. STATES H/A IS TEMPORAL RADIATING TO BACK OF HEAD ET NECK. HAS TRIED TYLENOL ET EXCEDRIN WITH NO RELIEF. Nursing Sepsis Screen: No Definite Risk Source: patient Exam Limitations: no limitations History of Present Illness Time seen by provider: 11:33 Initial Comments Bilateral retro-orbital headache that radiates down the back of her head for the past few days. She does have a history of headaches. This is similar. She has nausea but no vomiting. She denies any head injury. She also reports diaphoresis intermittently for a month. She's had some intermittent chest pains but none for 48 hours at least and none currently. She reports a history of heart failure. Timing/Duration: other Severity/Quality: moderate Location: global Prior Headaches/Recent Trauma: frequent headaches Associated Symptoms: nausea/vomiting Allergies and Home Medications Allergies Coded Allergies: Penicillins (Verified Allergy, Intermediate, 06/08/16) acetaminophen (Verified Allergy, Intermediate, 06/08/16) codeine (Verified Allergy, Intermediate, 06/08/16) orphenadrine (Unverified Allergy, Intermediate, ARMS SWELL AND SUAZO, 12/20) oxycodone (Verified Allergy, Intermediate, 06/08/16) pentazocine (Verified Allergy, Intermediate, 06/08/16) propoxyphene (Verified Allergy, Intermediate, 06/08/16) tramadol (Verified Allergy, Intermediate, 06/08/16) Constitutional: see HPI Eyes: No Symptoms Reported, Denies Blindness, Denies Blurred Vision, Denies Drainage, Denies Decreased Acuity Ears, Nose, Mouth, Throat: no symptoms reported Respiratory: no symptoms reported Cardiovascular: no symptoms reported Genitourinary: no symptoms reported Musculoskeletal: no symptoms reported Skin: no symptoms reported Psychiatric/Neurological: No Symptoms Reported Past Nbfwcyh-Tbyrep-Lpaeou Hx Patient Social History Alcohol Use: Denies Use Recreational Drug Use: No Smoking Status: Former Smoker Type Used: Cigarettes Former Smoker, Quit: May 25, 1964 2nd Hand Smoke Exposure: Yes Recent Foreign Travel: No Contact w/Someone Who Travel: No Recent Infectious Disease Expo: No Recent Hopitalizations: Yes (HEART CATH 05/31/16) Seasonal Allergies Seasonal Allergies: No Surgeries History of Surgeries: Yes (HEART CATH, COLON, CARPAL TUNNEL, EYE) Surgeries: Appendectomy, Gallbladder Respiratory History of Respiratory Disorde: Yes Respiratory Disorders: Asthma, Emphysema Cardiovascular History of Cardiac Disorders: Yes (CHF) Cardiac Disorders: Hypertension Neurological History of Neurological Disord: No Genitourinary History of Genitourinary Disor: No Gastrointestinal History of Gastrointestinal Di: No Musculoskeletal History of Musculoskeletal Dis: Yes Musculoskeletal Disorders: Arthritis, Chronic Back Pain Endocrine History of Endocrine Disorders: No HEENT HEENT Disorders: Cataract Cancer History of Cancer: No Psychosocial History of Psychiatric Problem: Yes Behavioral Health Disorders: Anxiety Integumentary History of Skin or Integumenta: No Blood Transfusions History of Blood Disorders: No Family Medical History Significant Family History: No Pertinent Family Hx Physical Exam Vital Signs Vital Sign - Last 12Hours 12/20/16 10:07 Temp 97.5 Pulse 67 Resp 18 B/P (MAP) 143/67 Pulse Ox 97 O2 Delivery Room Air Capillary Refill : Less Than 3 Seconds General Appearance: WD/WN, no apparent distress HEENT: PERRL/EOMI, normal ENT inspection Neck: non-tender, full range of motion Respiratory: lungs clear, normal breath sounds, no respiratory distress, no accessory muscle use Gastrointestinal: normal bowel sounds, non tender, soft Extremities: normal range of motion, non-tender, normal inspection Psychiatric: alert, oriented x 3 Crainal Nerves: normal hearing, normal speech, PERRL Motor/Sensory: no motor deficit, no sensory deficit Skin: normal color, warm/dry Progress/Results/Core Measures Results/Orders Lab Results Laboratory Tests Test 12/20/16 11:28 Range/Units White Blood Count 6.9 4.3-11.0 10^3/uL Red Blood Count 4.32 L 4.35-5.85 10^6/uL Hemoglobin 13.3 11.5-16.0 G/DL Hematocrit 40 35-52 % Mean Corpuscular Volume 93 80-99 FL Mean Corpuscular Hemoglobin 31 25-34 PG Mean Corpuscular Hemoglobin Concent 33 32-36 G/DL Red Cell Distribution Width 14.4 10.0-14.5 % Platelet Count 260 130-400 10^3/uL Mean Platelet Volume 10.9 H 7.4-10.4 FL Neutrophils (%) (Auto) 54 42-75 % Lymphocytes (%) (Auto) 33 12-44 % Monocytes (%) (Auto) 9 0-12 % Eosinophils (%) (Auto) 3 0-10 % Basophils (%) (Auto) 1 0-10 % Neutrophils # (Auto) 3.8 1.8-7.8 X 10^3 Lymphocytes # (Auto) 2.3 1.0-4.0 X 10^3 Monocytes # (Auto) 0.6 0.0-1.0 X 10^3 Eosinophils # (Auto) 0.2 0.0-0.3 10^3/uL Basophils # (Auto) 0.1 0.0-0.1 10^3/uL Erythrocyte Sedimentation Rate 13 0-30 MM/HR Sodium Level 143 135-145 MMOL/L Potassium Level 3.9 3.6-5.0 MMOL/L Chloride Level 110 H 98-107 MMOL/L Carbon Dioxide Level 21 21-32 MMOL/L Anion Gap 12 5-14 MMOL/L Blood Urea Nitrogen 19 H 7-18 MG/DL Creatinine 0.81 0.60-1.30 MG/DL Estimat Glomerular Filtration Rate > 60 BUN/Creatinine Ratio 23 Glucose Level 90 70-105 MG/DL Calcium Level 9.0 8.5-10.1 MG/DL Troponin I < 0.30 <0.30 NG/ML B-Type Natriuretic Peptide 14.6 <100.0 PG/ML My Orders Orders - CORIN EPSTEIN APRN Cbc With Automated Diff (12/20/16 10:48) Erythrocyte Sedimentation Rate (12/20/16 10:48) Basic Metabolic Panel (12/20/16 10:48) Ct Head Wo (12/20/16 10:48) BNP (12/20/16 11:32) Troponin I (12/20/16 11:32) Saline Lock/Iv-Start (12/20/16 11:32) Ketorolac Injection (Toradol Injection) (12/20/16 11:45) Diphenhydramine Injection (Benadryl Inje (12/20/16 11:45) Ondansetron Injection (Zofran Injectio (12/20/16 11:45) Medications Given in ED Current Medications Medications Dose Ordered Sig/Theodore Route Start Time Stop Time Status Last Admin Dose Admin Diphenhydramine HCl 12.5 mg ONCE ONCE IVP 12/20/16 11:45 12/20/16 11:46 DC 12/20/16 11:54 12.5 MG Ketorolac Tromethamine 30 mg ONCE ONCE IVP 12/20/16 11:45 12/20/16 11:46 DC 12/20/16 11:54 30 MG Ondansetron HCl 4 mg ONCE ONCE IVP 12/20/16 11:45 12/20/16 11:46 DC 12/20/16 11:54 4 MG Vital Signs/I&O Vital Sign - Last 12Hours 12/20/16 10:07 Temp 97.5 Pulse 67 Resp 18 B/P (MAP) 143/67 Pulse Ox 97 O2 Delivery Room Air Blood Pressure Mean: 92 Diagnostic Imaging Diagonstic Imaging: Xray Comments NAME: MICHAEL IBANEZ [facility] REC#: [id number] PT STATUS: REG ER : 1950 PHYSICIAN: CORIN EPSTEIN APRN ADMIT DATE: 12/20/16/ER Draft Date of Exam:12/20/16 CT HEAD WO Clinical indication: Patient with severe headache. Exam: Axial CT scan of brain performed without IV contrast. Comparison: None. Findings: There is no evidence of acute cerebral infarct, intracranial hemorrhage, or gross mass effect. There is a small focal area of low-attenuation white matter process in the right frontal lobe which appears chronic. Otherwise brain parenchyma is unremarkable. There is normal clemente-white matter distinction. The brain parenchymal volume appears appropriate for patient's age. There is no significant midline shift or herniation. There is no evidence of hydrocephalus. The basal cisterns are unremarkable. The skull, extracranial soft tissue, and orbits are unremarkable. The paranasal sinuses are unremarkable. Impression: 1: There is no evidence of acute intracranial process. 2: There is a small low-attenuation area in the right frontal region which may be related to chronic small vessel ischemic disease. Dictated on workstation # [id number] Dict: 12/20/16 1152 Trans: 12/20/16 1157 SHMUEL [id number] Interpreted by: ELENA BORGES MD Electronically signed by: Departure Impression Impression: Primary Impression: Headache Disposition: 01 HOME, SELF-CARE Condition: Stable Departure-Patient Inst. Decision time for Depature: 12:22 Referrals: YARY GUSTAFSON MD (PCP/Family) Primary Care Physician Patient Instructions: Headache, Adult (DC) Add. Discharge Instructions: 1. Return to ER for any concerns 2. See her doctor next week 3. All discharge instructions reviewed with patient and/or family. Voiced understanding. CORIN EPSTEIN APRN Dec 20, 2016 11:35
[2016-12-20 11:39] LABS: BASOPHILS # (AUTO) 0.1 10^3/uL (0.0-0.1); BASOPHILS % (AUTO) 1 % (0-10); EOSINOPHILS # (AUTO) 0.2 10^3/uL (0.0-0.3); EOSINOPHILS % (AUTO) 3 % (0-10); LYMPHOCYTES # (AUTO) 2.3 X 10^3 (1.0-4.0); LYMPHOCYTES % (AUTO) 33 % (12-44); MEAN CORPUSCULAR HEMOGLOBIN 31 PG (25-34); MEAN CORPUSCULAR HGB CONC 33 G/DL (32-36); MEAN CORPUSCULAR VOLUME 93 FL (80-99); MEAN PLATELET VOLUME 10.9 FL (7.4-10.4); MONOCYTES # (AUTO) 0.6 X 10^3 (0.0-1.0); MONOCYTES % (AUTO) 9 % (0-12); NEUTROPHILS # (AUTO) 3.8 X 10^3 (1.8-7.8); NEUTROPHILS % (AUTO) 54 % (42-75); PLATELET COUNT 260 10^3/uL (130-400); RED BLOOD COUNT 4.32 10^6/uL (4.35-5.85); RED CELL DISTRIBUTION WIDTH 14.4 % (10.0-14.5); WHITE BLOOD COUNT 6.9 10^3/uL (4.3-11.0)
[2016-12-20] MEDS ORDERED: ONDANSETRON 4 MG/2 ML (SDV) Z0FRAN IVP ONE (11:45)
[2016-12-20] MEDS ORDERED: KETOROLAC 30 MG/ML VIAL IVP ONE (11:45)
[2016-12-20] MEDS ORDERED: diphenhydrAMINE 50 MG/ML INJ (BENADRYL) IVP ONE (11:45)
--- NOTE | 2016-12-20 11:57 | Diagnostic Imaging Report ---
Clinical indication: Patient with severe headache. Exam: Axial CT scan of brain performed without IV contrast. Comparison: None. Findings: There is no evidence of acute cerebral infarct, intracranial hemorrhage, or gross mass effect. There is a small focal area of low-attenuation white matter process in the right frontal lobe which appears chronic. Otherwise brain parenchyma is unremarkable. There is normal clemente-white matter distinction. The brain parenchymal volume appears appropriate for patient's age. There is no significant midline shift or herniation. There is no evidence of hydrocephalus. The basal cisterns are unremarkable. The skull, extracranial soft tissue, and orbits are unremarkable. The paranasal sinuses are unremarkable. Impression: 1: There is no evidence of acute intracranial process. 2: There is a small low-attenuation area in the right frontal region which may be related to chronic small vessel ischemic disease. Dictated by: Dictated on workstation # [id number]
[2016-12-20 12:03] LABS: ERYTHROCYTE SEDIMENTATION RATE 13 MM/HR (0-30)
[2016-12-20 12:05] LABS: ANION GAP 12 MMOL/L (5-14); BLOOD UREA NITROGEN 19 MG/DL (7-18); BUN/CREATININE RATIO 23; CARBON DIOXIDE 21 MMOL/L (21-32); CHLORIDE 110 MMOL/L (98-107); CREATININE SERUM 0.81 MG/DL (0.60-1.30); GFR ESTIMATED > 60; GLUCOSE 90 MG/DL (70-105); POTASSIUM 3.9 MMOL/L (3.6-5.0); SODIUM 143 MMOL/L (135-145)
[2016-12-20 12:12] LABS: TROPONIN I < 0.30 NG/ML (<0.30)
[2016-12-20 12:37] VITALS: BP 144/68
== END 2016-12-20 12:37 | disposition home or self-care (01) ==
LOC: EDUNIT# 09:20 → ER 09:24
DX: R51 Headache (principal); F41.9 Anxiety disorder, unspecified; I11.0 Hypertensive heart disease with heart failure; I50.9 Heart failure, unspecified; J43.9 Emphysema, unspecified; J45.909 Unspecified asthma, uncomplicated; Z90.49 Acquired absence of other specified parts of digestive tract; Z87.891 Personal history of nicotine dependence
CPT/HCPCS: 36415; 70450; 80048; 83880; 84484; 85025; 85652; 96374; 96375

== ENCOUNTER → 2017-03-27 | Outpatient (CLI) | payer MEDICARE ==
--- NOTE | 2017-03-27 11:20 | Diagnostic Imaging Report ---
PROCEDURE: CT chest without contrast. TECHNIQUE: Multiple contiguous axial images were obtained through the chest without the use of intravenous contrast. INDICATION: Wheezing and shortness of breath. FINDINGS: The lungs demonstrate mild atelectasis or scarring in the right upper lobe. Minimal atelectasis in the lung bases is also seen. There is no diffuse fibrotic pattern or other interstitial lung disease appreciated. No emphysema. No bronchiectasis. No significant consolidation, mass or suspicious nodule. The heart size normal. No pleural or pericardial effusion. There is no mediastinal mass. No mediastinal or hilar lymphadenopathy. No axillary lymphadenopathy. The thoracic aorta is normal in caliber. Small to moderate hiatal hernia is seen. Hepatic steatosis is noted. There is a cystic lesion in the upper pole of the left kidney measuring 2 cm. Degenerative changes in the lower thoracic spine are seen. IMPRESSION: 1. Scattered nonspecific areas of scarring in the right upper lobe and at the lung bases, probably sequela of prior infections. 2. Small to moderate hiatal hernia. 3. Hepatic steatosis. Dictated by: Dictated on workstation # [id number]
== END ==
LOC: RAD 10:29
PROVIDERS: ATTEND Internal Medicine Critical Care Medicine
DX: R91.8 Other nonspecific abnormal finding of lung field (principal); K44.9 Diaphragmatic hernia without obstruction or gangrene; K76.0 Fatty (change of) liver, not elsewhere classified; J45.909 Unspecified asthma, uncomplicated; J98.4 Other disorders of lung; E66.9 Obesity, unspecified
CPT/HCPCS: 71250

== ENCOUNTER → 2017-04-19 | Outpatient (CLI) | payer MEDICARE | LOC: SLEEP 13:51 | PROVIDERS: ATTEND Internal Medicine Critical Care Medicine | DX: G47.19 Other hypersomnia (principal); E66.9 Obesity, unspecified; J98.4 Other disorders of lung; R06.83 Snoring ==